=== PATIENT | male | born 1930 | race Caucasian/White ===

== ENCOUNTER 2016-08-05 19:55 | Inpatient (IN) | payer MEDICARE, OTHER ==
--- NOTE | ~2016-08-05 | CN ---
Consultation Report [facility] [address] [place]. [address] NAME: INNA MATOS : 32 STATUS : ADM IN PAT#: [id number] AGE: 86 ADM/REG DATE : 08/05/16 MR#: [id number] REPORT SERV DATE: 08/13/16 DICTATED BY: SHELDON HOYOS DATE: 08/13/16 REPORT STATUS : Draft TRANSCRIBED BY: MODL DATE: 08/13/16 INPATIENT CONSULT NOTE DATE OF CONSULTATION: 08/13/2016 REASON FOR CONSULTATION: Acute drop in hemoglobin concerning for GI bleed. HISTORY OF PRESENT ILLNESS: Mr. 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 The patient underwent left heart catheterization with placement of a left anterior descending drug-eluting stent and was started on Brilinta as well as aspirin. The patient has had intermittent problems in the past with ascites requiring paracentesis every several weeks. During this hospitalization on the day prior to this consultation, the patient underwent a paracentesis with removal of 3000 mL of ascites fluid. On the morning of this consultation, the patient was noted to have had an acute drop in his hemoglobin down from 9 to 7.5 with a subsequent recheck several hours later down to 6.7. The patient had a stool sample sent earlier that by report was dark. The patient has had no suggestion of any melena. The patient has had nauseousness over the last several days, but has had no emesis of any coffee-ground material or bright red blood. The patient has also had no bright red blood per rectum. GI was consulted for concern of possible GI bleed. It should also be noted that the patient's BUN has been noted to be on the rise over the last several days after his left heart catheterization up to a high of 99 with a baseline closer to 50 or 60. The patient has also had an increase in his creatinine over this time period as well. REVIEW OF SYSTEMS: All systems reviewed and were negative aside from what was mentioned in the history of present illness. The patient denied any fevers or chills. No abdominal pain. PAST MEDICAL HISTORY: Includes: 1. 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 3. History of ascites. 4. History of hepatic encephalopathy. 5. Chronic kidney disease, stage 3 to 4. 6. Hypertension. 7. Hypothyroidism. 8. Restless legs syndrome. FAMILY HISTORY: The patient has no family history of any GI-related malignancies or liver disease. SOCIAL HISTORY: The patient does not drink. He does not smoke any longer having quit Consultation Report [address] [place]. [address] NAME: INNA MATOS : 32 STATUS : ADM IN PAT#: [id number] AGE: 86 ADM/REG DATE : 08/05/16 MR#: [id number] REPORT SERV DATE: 08/13/16 DICTATED BY: SHELDON HOYOS DATE: 08/13/16 REPORT STATUS : Draft TRANSCRIBED BY: RADHA DATE: 08/13/16 several decades ago and does not use illicit substances. ALLERGIES: THE PATIENT HAS AN ALLERGY TO DILAUDID. CURRENT INPATIENT MEDICATIONS: Include: 1. Protonix 40 mg IV daily. 2. Lipitor. 3. Aspirin. 4. Brilinta. 5. Synthroid. 6. Xifaxan. 7. Remeron. 8. Protonix drip that was just started. PHYSICAL EXAMINATION: VITAL SIGNS: Most recent vital signs include a temperature of 96.7, pulse rate is 92, blood pressure is 104/63, and saturating 95% on room air. GENERAL INSPECTION: Reveals an elderly male, lying in bed, in no apparent distress. HEENT: Head: Normocephalic, atraumatic. Normal inspection of the oral mucosa. Sclerae nonicteric. Pupils are equal and round. NECK: Supple without lymphadenopathy. HEART: Heart rate is regular with normal S1, S2. LUNGS: Sounds clear to auscultation bilaterally. ABDOMEN: Soft, with very mild distention, but no masses were felt. No significant fluid buildup was appreciated. EXTREMITIES: The patient had no cyanosis, clubbing, or edema. SKIN: He did have scattered ecchymoses. No jaundice or rash. NEUROLOGIC: He has no gross motor deficits. He is alert and oriented. Mood and affect are appropriate. Judgment appeared to be intact. LABORATORY DATA: Most recent laboratory results include a hemoglobin of 6.7, down from 7.6 earlier in the day and 9.1 the day before. The patient had an INR of 1.6 and a PTT of 35 yesterday. No pertinent imaging to review. The patient was noted to have rising BUN and creatinine with most recent BUN of 99 and creatinine of 2.12. ASSESSMENT AND PLAN: Mr. Matos is a very pleasant 86-year-old male with a history of cirrhosis, who just sustained an ST-elevation myocardial infarction and underwent catheterization with drug-eluting stent placement and is now on Brilinta and aspirin, now having acute drop in his hemoglobin level. The patient does have an elevated BUN, but he has also had a concomitant rise in his creatinine. He has continued to have nauseousness, but no emesis of any coffee-grounds emesis or hematemesis. The patient has not been having frequent stools that be suggestive of melena or other form of GI bleeding. While GI Consultation Report [address] [place]. [address] NAME: INNA MATOS : 32 STATUS : ADM IN [facility]#: [id number] AGE: 86 ADM/REG DATE : 08/05/16 MR#: [id number] REPORT SERV DATE: 08/13/16 DICTATED BY: SHELDON HOYOS DATE: 08/13/16 REPORT STATUS : Draft TRANSCRIBED BY: MODGus DATE: 08/13/16 bleeding if possible would be more concerned at this point in time about the paracentesis that he underwent yesterday. After which he has had this acute drop in his hemoglobin level. I would recommend CT of the abdomen and pelvis without contrast given the patient's kidney dysfunction to assess for any suggestion of blood mixing with his ascites fluid. In addition to this, we would keep the patient on a Protonix drip for now and continue to monitor hemoglobin three times daily and transfuse as felt appropriate. We will consider an EGD if CT scan shows no suggestion of intraabdominal bleeding. Thank you very much for this interesting consult. Please call with any questions or concerns you may have. SERGIO/RADHA Sheldon Hoyos MD / [id number] CC: Sabas Wilson MD
--- NOTE | ~2016-08-05 | CN ---
Consultation Report [facility] [address] [place]. [address] NAME: INNA DELGADO : 32 STATUS : ADM IN PAT#: [id number] AGE: 86 ADM/REG DATE : 08/05/16 MR#: [id number] REPORT SERV DATE: 08/13/16 DICTATED BY: ROBERTO CARLOS SONG DATE: 08/13/16 REPORT STATUS : Draft TRANSCRIBED BY: MODL DATE: 08/13/16 NEPHROLOGY CONSULTATION DATE OF CONSULTATION: 08/13/2016 REASON FOR CONSULTATION: Acute upon chronic renal failure. HISTORY OF PRESENT ILLNESS: This is an 86-year-old, gentleman, who apparently carries a history of chronic kidney disease stage 3B but is not followed by anyone at our office. He was seen briefly in consultation by my partner, Dr. Elda Geller, at [facility] in 07/2015. He had brief prerenal-type renal insufficiency at that time, and by the time, he was discharged, his creatinine was 1.2 mg/dL. From more recent lab work, it appears recent baseline creatinine has been more like 1.65 to 1.85 mg/dL as reflected by the [facility] lab work from 05/2016. He presented this time round with acute substernal chest pain on 08/05/2016 and was rapidly taken to the medical laboratory technician for coronary arteriogram. He was found to have a stentable lesion with 100% occlusion of proximal LAD. He underwent stenting with a drug-eluting stent. He has been on anti-platelet Brilinta since that time. He did not, from all I can tell, develop dye nephropathy. Creatinine remained fairly stable until 08/08/2016, when it had bumped up to 1.94 mg/dL. However, after supportive care and hydration, the creatinine dropped back down to 1.60 on 08/10/2016. As of yesterday, it was up to 1.79 mg/dL. He does have history of known cirrhosis and had developed ascites in the midst of all of this. He underwent paracentesis of 3 L yesterday. Review of vital signs from the electronic record reveals that systolics were in the 80s to 90s throughout yesterday afternoon and evening. This morning, his creatinine is up to 2.12 mg/dL. We are consulted to assist. PAST MEDICAL HISTORY: 1. Coronary artery disease with acute anterior lateral LA and status post stenting occluded LAD on 08/06/2016. 2. History of thrombocytopenia back in 05/2016, which was secondary to ITP and responded to corticosteroids. Platelets have been normal during this admission. 3. Chronic kidney disease with baseline creatinine 1.6 to 1.7 mg/dL, which give him stage IIIB chronic kidney disease. 4. Advanced cryptogenic cirrhosis with history of ascites followed by Dr. Freddy Lozano. 5. Chronic hypertension. 6. Hypothyroidism. 7. Restless legs syndrome. PAST SURGICAL HISTORY: 1. Open cholecystectomy in the distant past. 2. Coronary arteriography and stenting left anterior descending artery during this admission. 3. Remote hernia repair. 4. Remote repair of rectal prolapse. Consultation Report [address] [address] NAME: INNA DELGADO : 32 STATUS : ADM IN [facility]#: [id number] AGE: 86 ADM/REG DATE : 08/05/16 MR#: [id number] REPORT SERV DATE: 08/13/16 DICTATED BY: ROBERTO CARLOS SONG DATE: 08/13/16 REPORT STATUS : Draft TRANSCRIBED BY: RADHA DATE: 08/13/16 5. Bilateral cataract extraction. FAMILY HISTORY: He had a brother who suffered myocardial infarction at age 70. There is no family history of sudden cardiac . The patient did not recall any history of chronic kidney disease in his family. SOCIAL HISTORY: Remote smoking but he quit when he was approximately 62 years old. He does chew tobacco routinely. He does not abuse alcohol beverages. He is and has a very supportive . ALLERGIES: HE IS LISTED BEING ALLERGIC TO DILAUDID, WHICH CAUSED AN ANAPHYLACTOID REACTION. NO OTHER SIGNIFICANT ALLERGIES. HOME MEDICATIONS: Furosemide, gabapentin, hydrocodone/APAP, levothyroxine, mirtazapine, rifaximin, Aldactone. Now also taking aspirin and Brilinta. REVIEW OF SYSTEMS: GENERAL: No chills or fevers. GI: Appetite has diminished and intake of food and drink has been diminished since one to two days after admission to the hospital. The patient cannot ascertain why that is happening to him. He indicates some constipation lately. He denies bloody stools or melena. No nausea or vomiting. : No dysuria, gross hematuria, or urinary hesitancy. RESPIRATORY: No cough. CARDIOVASCULAR: Chest pain is totally resolved. He did not have peripheral edema. Other GI/ABDOMEN: He had protuberant ascites as of yesterday and underwent successful paracentesis of 3 L. SKIN: No acute rashes. All other review of systems was negative or noncontributory. PHYSICAL EXAMINATION: VITAL SIGNS: Blood pressure 95/57, temperature 99.3, respiratory rate 18, heart rate 82 beats per minute. Weight 66 kg. Urinary output 630 mL over the previous 12 hours. GENERAL: This is a chronically ill-appearing, elderly gentleman, who is in no distress at this time. HEENT: Normocephalic, atraumatic. External ears and nose normal. Sinuses nontender. Oropharynx, mucous membranes are moist and pink, free of any ulcerations or exudates. Eye exam was conjunctivae are free of any hemorrhages or exudates. Sclerae anicteric. Extraocular motor function is intact. Pupils equal, round, and reactive to light. NECK: Supple. Easily movable without meningismus. No palpable masses or nodules. LYMPHATIC: Anterior-posterior neck, supraclavicular, and abdominal regions were free of Consultation Report [address] [place]. [address] NAME: INNA DELGADO : 32 STATUS : ADM IN [facility]#: [id number] AGE: 86 ADM/REG DATE : 08/05/16 MR#: [id number] REPORT SERV DATE: 08/13/16 DICTATED BY: ROBERTO CARLOS SONG DATE: 08/13/16 REPORT STATUS : Draft TRANSCRIBED BY: RADHA DATE: 08/13/16 lymphadenopathy. RESPIRATORY: Efforts nonlabored. Lung bell clear to auscultation throughout. CARDIOVASCULAR: Regular rate and rhythm is appreciated without any gallop, rub, or murmur. No peripheral edema. No peripheral cyanosis. ABDOMEN: Minimally protuberant. Percussion elicits a normal tympani. No significant fluid wave at this point. Palpation elicits no guarding or tenderness. No evidence of hepatomegaly or splenomegaly at this time. SKIN: No rashes, breakdown, or discoloration. Skin turgor is diminished over the chest wall and forearms. STUDIES: Urinalysis from 08/07/2016, specific gravity 1.012, pH 5, negative protein, negative glucose, negative ketones, negative hemoglobin, negative leukocyte esterase. Microscopy was bland except for 28 hyaline casts. CBC; white cell count 7.6, hemoglobin 6.7 g/dL, hematocrit 19.4%, platelets 163. Chemistries: Albumin 2.2 g/dL, sodium 140, potassium 4.8, chloride 103, CO2 22, BUN 99, creatinine 2.12, glucose 110. Of note, the BUN has risen disproportionately to rise in serum creatinine. His BUN on admission was 64. IMPRESSION: 1. Mild acute kidney injury superimposed upon moderate chronic kidney disease. He may have acute tubular necrosis versus a purely prerenal state given recent hypotension after paracentesis. 2. Chronic kidney disease stage 3B with baseline creatinine 1.6 mg/dL to 1.7 mg/dL. 3. Recent anterolateral myocardial infarction, for which he was taken to the medical laboratory technician and his LAD was stented emergently. He is now taking Brilinta as well as aspirin. 4. Cryptogenic cirrhosis. Moderately advanced, followed by Dr. Freddy Lozano. Positive ascites and he is status post 3 L paracentesis yesterday. 5. Tobacco abuse. 6. Hypoalbuminemia. 7. Moderate to high severity anemia, etiology unclear. History does not suggest at this time that he is having a gastrointestinal blood loss. 8. Chronic hypotension, which may be related to chronic liver disease. 9. Very mild metabolic acidosis in the setting of acute renal failure. PLAN/RECOMMENDATION: 1. We need a new urinalysis as well as fractional secretion of urea studies with random urine creatinine, random urine urea. 2. I was going to suggest salt poor albumin but it appears he is getting a couple of units of packed red blood cells, and I think that would be preferable to SPA infusions for today. He is also getting some normal saline IV and I have no objection to that at this point. 3. Hold Aldactone and Lasix for now. 4. Daily chemistries to assess renal function. 5. Strict intake and output measurements and daily weights. Thank you for consulting me in the care of this complicated patient. Our service will follow carefully. Consultation Report [facility] [id number] [place]. [address] NAME: DELGADOMALIKINNA T : 32 STATUS : ADM IN PAT#: [id number] AGE: 86 ADM/REG DATE : 08/05/16 MR#: [id number] REPORT SERV DATE: 08/13/16 DICTATED BY: ROBERTO CARLOS SONG DATE: 08/13/16 REPORT STATUS : Draft TRANSCRIBED BY: RADHA DATE: 08/13/16 ANTOINE/RADHA Roberto Carlos Song M.D. / [id number] CC: Roberto Carlos Wilson MD
--- NOTE | ~2016-08-05 | DS ---
Discharge Summary [facility] [address] [place]. [address] NAME: INNA MATOS : 32 STATUS : DIS IN PAT#: [id number] AGE: 86 ADM/REG DATE : 08/05/16 MR#: [id number] REPORT SERV DATE: 10/25/16 DICTATED BY: ROBERTO CARLOS WILSON DATE: 10/24/16 REPORT STATUS : Draft TRANSCRIBED BY: MODGus DATE: 10/24/16 ADMISSION DATE: 08/05/2016 DISCHARGE DATE: 09/12/2016 DISCHARGE DIAGNOSES: 1. Acute anterolateral CG-vqtpswl-evvhghvrr myocardial infarction. 2. Advanced cirrhosis with chronic ascites. 3. Paroxysmal atrial fibrillation. 4. Chronic systolic heart failure. 5. Stage 3 chronic kidney disease. 6. Acute GI bleed. 7. Ileus. 8. Hypothyroidism. 9. Hypertension. 10.Prostatic hypertrophy. DISCHARGE MEDICATIONS: 1. Aspirin 81 mg p.o. daily. 2. Finasteride 5 mg p.o. daily. 3. Gabapentin 100 mg p.o. twice daily. 4. Levothyroxine 50 mcg p.o. daily. 5. Midodrine 10 mg p.o. three times daily. 6. Remeron 30 mg p.o. q.h.s. 7. Xifaxan 550 mg p.o. twice daily. 8. Sodium bicarbonate 1300 mg p.o. twice daily. 9. Tamsulosin 0.4 mg p.o. q.h.s. HOSPITAL COURSE: Mr. Matos is a pleasant, but chronically ill 86-year-old man, who was in his usual state of health until 08/05/2016. The patient presented with an acute anterolateral QG-kzznpvu-izyokyqjs myocardial infarction. The patient was taken for emergency primary percutaneous coronary intervention. He was found to have total occlusion of the proximal portion of the left anterior descending. He was treated with aspiration thrombectomy and placement of a 3.0 x 16 mm Synergy drug-eluting stent. The patient had some distal LAD disease, but no other significant occlusive coronary heart disease. He was admitted to the intensive care unit. The patient has known cirrhosis and did develop some mild hypotension. He also developed some renal insufficiency. The Nephrology Service was consulted. The patient's Aldactone and Lasix were withheld temporarily due to renal dysfunction. This resulted in the development of ascites. The patient also had multiple other issues which occurred during his hospitalization, including an ileus and paroxysmal atrial fibrillation. The patient also had significant deconditioning. Multiple consultants were employed in the patient's care. The patient required multiple paracenteses throughout his hospital stay. The patient also suffered GI bleeding. This required discontinuation of anticoagulation as well as the patient's antiplatelet therapy with the exception of aspirin 81 mg daily. The patient eventually recovered and was finally discharged to home after more than 30 days in the hospital on 09/12/2016. The patient will have followup with Dr. Smith, his regular nurse practitioner adult. He also has followup with Dr. Freddy Lozano, his election judge. Discharge Summary [address] [address] NAME: INNA MATOS : 32 STATUS : DIS IN PAT#: [id number] AGE: 86 ADM/REG DATE : 08/05/16 MR#: [id number] REPORT SERV DATE: 10/25/16 DICTATED BY: ROBERTO CARLOS WILSON DATE: 10/24/16 REPORT STATUS : Draft TRANSCRIBED BY: MODGus DATE: 10/24/16 The patient is not being treated with a statin drug because of his cirrhosis. He is not being treated with a beta-jil or JEFFRY inhibitor due to symptomatic hypotension, which occurred during the patient's hospitalization. The patient was in fact placed on midodrine by Dr. Lozano due to concern over decreased systemic vascular resistance from the patient's cirrhosis. [facility] Roberto Carlos Wilson MD / [id number] CC: MD John Chilel M.D.
--- NOTE | ~2016-08-05 | CN ---
Consultation Report [facility] [address] [place]. [address] NAME: INNA MATOS : 32 STATUS : ADM IN PAT#: [id number] AGE: 86 ADM/REG DATE : 08/05/16 MR#: [id number] REPORT SERV DATE: 08/07/16 DICTATED BY: KARIN LOZANO DATE: 08/07/16 REPORT STATUS : Draft TRANSCRIBED BY: MODL DATE: 08/07/16 CONSULT NOTE. DATE OF CONSULTATION: 08/07/2016 REASON FOR CONSULTATION: Cirrhosis and complications management. HISTORY: Mr. Matos is an 86-year-old male with cryptogenic cirrhosis of liver, who was the patient of Dr. Boyd until recently. I saw him in my clinic about two to three weeks ago. Has complication in the form of ascites, getting paracentesis as needed. He was getting once a month. Lately, it has been increased to once every one to two weeks. Recent diuretics were increased to Lasix 120 mg and spironolactone 75 mg. He has chronic kidney disease, stage 3. It has been stable with creatinine around 1.6 and GFR in late 20s or early 30s. He now is admitted with acute ST-elevation myocardial infarction. Had left anterior descending drug-eluting stent placed yesterday by Dr. Wilson. Now, on Brilinta along with aspirin. Post DE, developed shock, appears cardiogenic in nature, on dopamine at this time at 5 mcg. Blood pressure is running in 100s with diastolic in 60 and heart rate is in 80s. Obviously, not on any antihypertensive medications. The patient has continued getting diuretics along with his Xifaxan. Again, I saw him only one time, in process of getting all the records from Dr. Boyd. I am not aware of any EGD report, but no history of GI bleeding. Has mild encephalopathy, which is relatively controlled on Xifaxan. We had a lengthy discussion in the clinic when I saw him with family members. They suggested that he is not a candidate of liver transplant at 86 age. Also, TIPS is not ideal method of controlling ascites with increased risk of encephalopathy and will make his quality of life poor. The best option, we decided to is paracentesis as needed, but fortunately has not needed paracentesis for almost little bit over two weeks now. There is a concern about ascites causing hypertension, and primary team is requesting paracentesis if needed and that is the main reason I have been consulted. At this point, the patient is asymptomatic. Denies chest pain. Belly is soft. The patient does not need paracentesis. He says diuretics is working really well. He also is getting the diagnosis of ITP. His platelet dropped down to 9, received a steroid. About two months ago, platelets were 119 in my office and now they are 112 yesterday and this morning. PAST MEDICAL HISTORY: Consultation Report [address] [place]. [address] NAME: INNA MATOS : 32 STATUS : ADM IN PAT#: [id number] AGE: 86 ADM/REG DATE : 08/05/16 MR#: [id number] REPORT SERV DATE: 08/07/16 DICTATED BY: KARIN LOZANO DATE: 08/07/16 REPORT STATUS : Draft TRANSCRIBED BY: MODL DATE: 08/07/16 1. ITP. 2. Cirrhosis of liver. 3. Ascites. 4. Hepatic encephalopathy. 5. Chronic kidney disease, stage 3 to 4. 6. Hypertension. 7. Hypothyroidism. 8. Restless legs syndrome. SURGICAL HISTORY: Cholecystectomy, hernia repair, rectal prolapse repair, and bilateral cataract surgery. Now LAD stent, drug-eluting. FAMILY HISTORY: Brother suffered microinfarction at age of 70. Negative for any liver- related disease. SOCIAL HISTORY: Distant tobacco smoking, quit about 20 plus years ago. Does not drink alcohol. Good family support. ALLERGIES: DILAUDID. MEDICINE AT HOME: 1. Lasix 80 mg in the morning and 40 in the evening. 2. Aldactone 50 in the morning and 25 in the evening. 3. Xifaxan 550 twice a day. 4. Remeron 30 at night. 5. Gabapentin 100-200 mg at night. 6. Hydrocodone as needed. 7. Levothyroxine 50 mcg daily. REVIEW OF SYSTEMS: As per HPI. Other systems reviewed, significant positive has been mentioned in the history. PHYSICAL EXAMINATION: GENERAL: Well developed, average nourished, pleasant, not in distress. VITAL SIGNS: Blood pressure 107/62, pulse 88, respirations 16, pulse ox 98%, temperature 98.6. HEENT: Eyes have mild pallor. No icterus. Pupils equally round, reactive to light. NECK: Supple. No JVD. LUNGS: Bilateral decreased air entry. Bibasilar rales. HEART: S1, S2 present. No gallop. No murmur appreciated. ABDOMEN: Bit distended. Pxsh-ul-elwfssul ascites. Nontender. Liver and spleen not palpable. No hernia. EXTREMITIES: No edema. No varicose veins. Normal peripheral pulses. NEURO: No focal deficits. Cranial nerves intact. Speech normal. PSYCH: Awake, oriented, and a bit slow, but responding to all the questions appropriately. Consultation Report [facility] [address] [place]. [address] NAME: INNA MATOS : 32 STATUS : ADM IN [facility]#: [id number] AGE: 86 ADM/REG DATE : 08/05/16 MR#: [id number] REPORT SERV DATE: 08/07/16 DICTATED BY: KARIN LOZANO DATE: 08/07/16 REPORT STATUS : Draft TRANSCRIBED BY: MODGus DATE: 08/07/16 LABORATORY WORK: Shows WBC 5.7, hemoglobin 10.9, platelet 112. Sodium 137, potassium 4.3, chloride 104, bicarb 21, BUN 58, creatinine 1.62. INR 1.3. AST 43, albumin 2.8. CPK 1100, troponin 83, bilirubin 0.4, and MELD-sodium score is 14. IMPRESSION: 1. ST-elevation myocardial infarction, status post stent in LAD, drug-eluting, on anti- platelet in form of Brilinta and aspirin. The patient is symptomatic now. 2. Hypertension. Appears more cardiogenic, status post myocardial infarction on dopamine. Blood pressure is in 90s to 100 with a pulse in 80s and 90s. 3. Cryptogenic cirrhosis of liver, burned-out liver. Has heterozygous alpha-1 antitrypsin deficiency, MZ with level around 70s. All other chronic liver diseases are negative. Has complication in form of ascites, hepatic encephalopathy, unknown status off varices, do not have recent EGD report which was done by Dr. Boyd. 4. Ascites, on p.r.n. paracentesis with albumin, average every two to three weeks. Not an ideal TIPS candidate. Not a candidate for aggressive diuretics with high risk of hepatorenal syndrome. The best option is paracentesis, but not needed at this point. 5. Chronic kidney disease stage 3 to stage 4, on diuretics. Again high risk of hepatorenal syndrome. Would like to avoid any nephrotoxic medications with very close monitoring of blood work as an outpatient. 6. Debilitation and malnutrition. 7. Idiopathic thrombocytopenic purpura. Platelets are stable at this point. Again, if the platelets continue to drop, then may need prednisone pulse therapy. SUGGESTION: 1. Paracentesis with albumin as needed. At this point, I do not think it is clinically warranted. The patient has minimal fluid. 2. For the future paracentesis, we will have to talk to the radiologist. Unfortunately, now he is on Brilinta which cannot be stopped with the stent which is drug-eluting, and we will have to do paracentesis while on antiplatelet with acceptable risk of bleeding and I have discussed with the daughter and she understands that. 3. We will continue Lasix total 180 mg daily and spironolactone total 75 mg daily. It seems he is tolerating with stable renal functions to minimize the frequency of paracentesis. 4. We will add ProAmatine 10 mg three times a day to support blood pressure and try to get him off the dopamine and likely will need as an outpatient. 5. Obviously not a candidate for beta jil and JEFFRY inhibitor at this point. 6. Continue rifaximin for PSE and gabapentin for restless legs syndrome. Again, had a lengthy discussion with the patient's family about current situation. Potential risk of bleeding and paracentesis on anti-platelet agent. He and daughter understand and agree with the management. Call me if any question or concern. Consultation Report [place] [address] [place] [address] NAME: INNA MATOS : 32 STATUS : ADM IN PAT#: [id number] AGE: 86 ADM/REG DATE : 08/05/16 MR#: [id number] REPORT SERV DATE: 08/07/16 DICTATED BY: KARIN LOZANO DATE: 08/07/16 REPORT STATUS : Draft TRANSCRIBED BY: RADHA DATE: 08/07/16 JEANIE/RADHA Karin Lozano M.D. / [id number] CC: MD John Chilel M.D.
--- NOTE | ~2016-08-05 | EGD ---
EGD REPORT [facility] [address] [place] [address] NAME: INNA MATOS : 32 STATUS : ADM IN PAT#: [id number] AGE: 86 ADM/REG DATE : 08/05/16 MR#: [id number] REPORT SERV DATE: 08/15/16 DICTATED BY: SHELDON HOYOS DATE: 08/15/16 REPORT STATUS : Draft TRANSCRIBED BY: [facility] DATE: 08/15/16 Endoscopy Center Patient Name: Inna Matos Date of : 1930 Attending MD: SHELDON HOYOS MD Procedure Date No Time: 08/14/2016 Procedure: Upper GI endoscopy Indications: Suspected upper gastrointestinal bleeding Medicines: Monitored Anesthesia Care Complications: No immediate complications. Estimated blood loss: None. Procedure: Pre-Anesthesia Assessment: - ASA Grade Assessment: IV - A patient with severe systemic disease that is a constant threat to life. After obtaining informed consent, the endoscope was passed under direct vision. Throughout the procedure, the patient's blood pressure, pulse, and oxygen saturations were monitored continuously. The GIF [id number] was introduced through the mouth, and advanced to the second part of duodenum. The upper GI endoscopy was accomplished without difficulty. The patient tolerated the procedure well. Findings: No gross lesions were noted in the entire esophagus. No gross lesions were noted in the entire examined stomach. A large diverticulum was found in the second part of the duodenum. The exam was otherwise without abnormality. Impression: - No suggestion of recent bleeding in the entire upper GI tract - Duodenal diverticulum. - The examination was otherwise normal. Recommendation: - Clear liquid diet. - Check hemoglobin q 8 hours until stable. Procedure Code(s): --- Professional --- 85385, Esophagogastroduodenoscopy, flexible, transoral; diagnostic, including collection of specimen(s) by brushing or washing, when performed (separate procedure) Diagnosis Code(s): --- Professional --- K57.10, Diverticulosis of small intestine without perforation or abscess without bleeding EGD REPORT [address] [address] NAME: INNA MATOS : 32 STATUS : ADM IN [facility]#: [id number] AGE: 86 ADM/REG DATE : 08/05/16 MR#: [id number] REPORT SERV DATE: 08/15/16 DICTATED BY: SEHLDON HOYOS DATE: 08/15/16 REPORT STATUS : Draft TRANSCRIBED BY: [employer] [facility] [facility] DATE: 08/15/16 CPT copyright 2013 [employer]. All rights reserved. The codes documented in this report are preliminary and upon joist setter review may be revised to meet current compliance requirements. Sheldon Hoyos MD SHELDON HOYOS MD 08/14/2016 10:29 AM This report has been signed electronically. Number of Addenda: 0 Note Initiated On: 08/14/2016 10:07 AM Scope Withdrawal Time 0 hours 0 minutes 0 seconds
--- NOTE | ~2016-08-05 | HP ---
History And Physical [place] [address] [place]. [address] NAME: INNA MATOS : 32 STATUS : ADM IN [facility]#: [id number] AGE: 86 ADM/REG DATE : 08/05/16 MR#: [id number] REPORT SERV DATE: 08/06/16 DICTATED BY: ROBERTO CARLOS WILSON DATE: 08/05/16 REPORT STATUS : Draft TRANSCRIBED BY: MODL DATE: 08/05/16 DATE OF ADMISSION: 08/05/2016 CARDIOLOGY ADMISSION HISTORY AND PHYSICAL IDENTIFYING DATA: The patient is an 86-year-old man, with history of advanced liver disease, but no significant history of cardiovascular disease. CHIEF COMPLAINT: Substernal chest pain of abrupt onset at approximately 2 o'clock p.m. this afternoon. HISTORY OF PRESENT ILLNESS: Mr. Matos is a pleasant 86-year-old man with a history of hepatic insufficiency/cirrhosis apparently due to hepatitis infection many years ago. The patient has a history of ascites and receives chronic therapeutic paracentesis as needed. The patient was in his usual state of health until this afternoon at approximately 2 o'clock p.m. 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 The patient did not immediately seek medical treatment, but eventually presented to [facility] Emergency Room at approximately 8 o'clock p.m. The patient's initial 12-lead EKG was consistent with an anterior myocardial infarction. The patient was transferred to [facility] emergently for primary percutaneous coronary intervention. The patient reported his chest pain was 8/10 at the time of presentation. It had been unremitting. PAST MEDICAL HISTORY: 1. The patient is followed by Dr. Zain Smith, but has no known history of coronary heart disease. He had a previous stress test and echocardiogram which were unremarkable. 2. History of thrombocytopenia secondary to suspected ITP. 3. Chronic kidney disease with baseline creatinine 1.6 to 1.7. 4. Advanced cirrhosis with history of ascites. 5. Hypertension. 6. Hypothyroidism. 7. Restless leg syndrome. PAST SURGICAL HISTORY: 1. The patient has had an open cholecystectomy in the distant past. 2. Hernia repair. 3. Repair of rectal prolapse. 4. Bilateral cataract extraction. FAMILY HISTORY: The patient reports that his brother suffered myocardial infarction and/or stent placement at approximately age 70. Family history is negative for sudden cardiac . SOCIAL HISTORY: The patient has a distant history of cigarette smoking, but quit when he was approximately 62 years old. He denies any significant history of alcohol use. The patient History And Physical [address] [address] NAME: INNA MATOS : 32 STATUS : ADM IN PAT#: [id number] AGE: 86 ADM/REG DATE : 08/05/16 MR#: [id number] REPORT SERV DATE: 08/06/16 DICTATED BY: ROBERTO CARLOS WILSON DATE: 08/05/16 REPORT STATUS : Draft TRANSCRIBED BY: MODL DATE: 08/05/16 is and lives at home with his . ALLERGIES: THE PATIENT REPORTS AN ADVERSE REACTION TO DILAUDID, WHICH CAUSED AN ANAPHYLACTOID REACTION, NOT OTHERWISE SPECIFIED. HOME MEDICATIONS: According to the patient's daughter, the patient's home medication regimen includes the following. 1. Lasix 80 mg p.o. q.a.m. and 40 mg p.o. q.p.m. 2. Aldactone 50 mg p.o. q.a.m. and 25 mg p.o. q.p.m. 3. Xifaxan 550 mg p.o. twice daily. 4. Remeron 30 mg p.o. q.p.m. p.r.n. sleep. 5. Gabapentin 100 mg to 200 mg p.o. q.p.m. as needed for restless leg discomfort. 6. Hydrocodone as needed for pain. 7. Levothyroxine 50 mcg daily. REVIEW OF SYSTEMS: A complete 12-system review was performed. This is noncontributory except for the pertinent positives and negatives noted in the history of present illness above. Of note, the patient does have slight worsening of chronic abdominal distention: He has not received paracentesis recently. Previously,the patient was receiving paracenteses approximately once weekly. PHYSICAL EXAMINATION: VITAL SIGNS: The patient is afebrile. Blood pressure on presentation is approximately 90/50 mmHg, heart rate is 85 beats per minute and regular, respirations 20, oxygen saturation is 96% on 2 L nasal cannula. CONSTITUTIONAL: The patient is a chronically ill-appearing, elderly white man who is uncomfortable, but in no acute respiratory distress at the time of presentation. HEAD, EARS, NOSE, THROAT: Normal cranium, atraumatic with moist mucous membranes and grossly normal hard and soft palate. Eyes: There is very mild scleral icterus with arcus senilis and changes of bilateral cataract extraction surgery noted. NECK: The neck appears grossly normal with midline trachea. No evidence of thyromegaly or lymphadenopathy. CARDIOVASCULAR: There is a regular rhythm with normal S1 and a physiologically split second heart sound. No significant murmurs, rubs, or gallops are noted. The jugular venous pressure is grossly normal. PULMONARY: Limited exam due to the patient's positioning, but the lungs are grossly clear to auscultation bilaterally. ABDOMEN: The abdomen is protuberant with moderate distention. The abdomen is mildly tense, though there is no rebound or guarding or significant tenderness to palpation. Bowel sounds are hypoactive. EXTREMITIES: There is trace to 1+ pedal edema. SKIN: Otherwise normal texture and turgor with slight jaundice. No open lesions are noted. 12-LEAD EKG: The patient's admission 12-lead EKG shows normal sinus rhythm with 2 [address]-segment elevation in the anterior leads with Q-waves consistent with an evolving anterolateral ST-segment elevation myocardial infarction. History And Physical [address] [address] NAME: INNA MATOS : 32 STATUS : ADM IN [facility]#: [id number] AGE: 86 ADM/REG DATE : 08/05/16 MR#: [id number] REPORT SERV DATE: 08/06/16 DICTATED BY: ROBERTO CARLOS WILSON DATE: 08/05/16 REPORT STATUS : Draft TRANSCRIBED BY: MODL DATE: 08/05/16 LABORATORY DATA: Preliminary labs from [facility] are significant for a platelet count of 141,000, creatinine of approximately 1.7, and otherwise grossly normal electrolytes with a mild anemia. Full labs are pending at this time. Coronary angiography: Please see official report for full details. 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 The patient was treated with aspiration thrombectomy and placement of a 3.0 x 16 mm Synergy drug-eluting stent with 0% residual and RIYA-3 flow. The patient had mild plaquing of the right coronary artery and distal left anterior descending with no other significant occlusive coronary heart disease. Left ventricular end-diastolic pressure was 12 mmHg. Left ventriculography was not performed, due to chronic kidney disease. ASSESSMENT AND PLAN: 1. 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 He will continue aspirin 81 mg daily indefinitely. The patient was relatively hypotensive at the time of presentation, but he will be started on carvedilol if his blood pressure remained stable, and he does not have any evidence of acute systolic heart failure. 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 2. Cirrhosis: We will consider Gastroenterology consult if necessary. The patient does appear to have a significant amount of ascites at this time, though this it is not clear that he will require paracentesis at this point. The patient's platelet count will be monitored closely, and the patient will be monitored for any evidence of bleeding complications. 3. Hypothyroidism: The patient will continue his home dose of levothyroxine 50 mcg daily. 4. Hypertension: The patient has no evidence of hypertension at this time and is in fact hypotensive. Again, we will add a beta jil if tolerated. J[facility]/MODL Roberto Carlos Wilson MD / [id number] CC: Roberto Carlos Wilson MD
--- NOTE | ~2016-08-05 | CN ---
Consultation Report [facility] [address] [place]. [address] NAME: INNA DELGADO : 34 STATUS : ADM IN PAT#: [id number] AGE: 86 ADM/REG DATE : 08/05/16 MR#: [id number] REPORT SERV DATE: 08/22/16 DICTATED BY: CRIS LYNN DATE: 08/22/16 REPORT STATUS : Draft TRANSCRIBED BY: MODL DATE: 08/22/16 MEDICAL CONSULTATION DATE OF CONSULTATION: 08/22/2016 REASON FOR CONSULTATION: Coordination of care. REASON FOR ADMISSION: Acute anterolateral myocardial infarction. HISTORY OF PRESENT ILLNESS: This is an 86-year-old, white male, in the hospital here for an acute anterolateral PA. He was seen by Dr. Wilson. He does have an ejection fraction about 35%. His troponin was extremely elevated over 83. He was started on anti-platelet medication and other cardiovascular medication on 08/05 at 2230 hours. From chart review, it indicates the patient has been seen by Dr. 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 He has had multiple side paracenteses in the past. His status for varices is unknown. He was found to have iron deficiency anemia by Hematology/Oncology. 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 Eze Hazel for that. His primary care being given initially by Dr. Boyd up until May 2016 and then care for his liver transferred to Dr. Freddy Lozano for his care. Dr. Freddy Lozano saw the patient during the hospitalization on 08/07/2016. His note was reviewed. He did have some hypotension, was on dopamine at that time. He did have modest renal insufficiency with a creatinine 1.62 and has been seen by Nephrology during this hospitalization. Family understands that his liver was stable as judged by Dr. Lozano, however Dr. Lozano's note indicates he has burned out liver disease secondary to the heterozygous alpha 1 antitrypsin deficiency. He suggested p.r.n. LBP and albumin, but he is not a candidate for TIPS or not a candidate to increase diuretics because of his chronic kidney disease stage 3 to 4. He does have malnutrition. He said that he is a high risk for hepatorenal syndrome. The patient was resuscitated from that level and followed by Dr. Lozano and Katie requiring paracentesis on 08/12/2016. The patient's discharge planning has been a problem ever since then. Nephrology saw the patient because of mild acute on chronic kidney disease and adjusted the diuretics, to which the family had objection. EGD was done showing no stigmata of bleeding and likely GI bleeding to account for his drop in hemoglobin and hematocrit, the first of August. Since then, his hypotension has improved. His albumin is still low. Family desired hospitalist to follow as this had happened in the past with Dr. Sanchez, Dr. Caldwell, and Dr. Sosa having followed the patient for review of previous old records. PAST MEDICAL HISTORY: He had been seen by Dr. Doran in the past, but has been over a year since he was seen by a primary care physician. He is followed mostly by Dr. Hazel for the ITP and Dr. Boyd and subsequently Dr. Lozano for the liver problem. Consultation Report [address] [address] NAME: INNA DELGADO : 34 STATUS : ADM IN PAT#: [id number] AGE: 86 ADM/REG DATE : 08/05/16 MR#: [id number] REPORT SERV DATE: 08/22/16 DICTATED BY: CRIS LYNN DATE: 08/22/16 REPORT STATUS : Draft TRANSCRIBED BY: RADHA DATE: 08/22/16 ADMISSION MEDICATIONS: Include the following: Furosemide 40 mg p.o. q.p.m., 80 mg p.o. q.a.m., gabapentin 100 mg p.o. b.i.d., hydrocodone 10/325 one p.o. b.i.d., p.r.n. pain, levothyroxine 50 mcg p.o. daily, mirtazapine 30 mg p.o. at bedtime, rifaximin 550 mg p.o. b.i.d., spironolactone 25 mg p.o. every evening and 50 mg every morning. ALLERGIES: HYDROMORPHONE FROM DILAUDID. SOCIAL HISTORY: He is . Lives with elderly . His has back problems, leg problems, peripheral vascular disease, and saw Dr. Martinez today. He does not smoke, drink, or dip snuff. He was able to walk around outside until he came in the hospital at this time with acute PA. FAMILY HISTORY: Noncontributory. He complains of weakness mostly in the legs. [facility] is seeing the patient with possible initiation of transfer began on 08/17/2016. Discussed again today and they are willing to take the patient. He does have an elevated BUN now up to 98 and Nephrology has been reconsulted. GI has been following as well. There is no evidence of overt bleeding. However, the Hematology feels he has iron deficiency anemia. He is getting IV iron at this point. He has had no swelling or shortness of breath. He has not gotten physical therapy for the last two days. I discussed with Hillary, the nursing home social worker regarding plan for disposition. Remainder of the review of systems was negative. PHYSICAL EXAMINATION: VITAL SIGNS: Blood pressure was 118/72 with a heart rate 70, respiratory rate 16, and afebrile. HEENT: Eyes are sunken. Face is gaunt. NECK: No bruit without any JVD. CHEST: Clear to A and P. HEART: Regular, S1, S2 without murmur, gallop, or click. ABDOMEN: Protuberant, nontender. Bowel sounds are positive. Liver is felt in the right upper quadrant. His large liver edge is palpable and firm about 4 fingerbreadths below the inferior costal margin. EXTREMITIES: Have no edema. No distal pulses are palpable. NEUROLOGIC: He withdraws to plantar stimulation. [employer] is equal and symmetric bilaterally. Coordination intact. He has no asterixis. SKIN: Has multiple ecchymoses and stasis changes. LYMPHATICS: Not palpable. LABORATORY DATA: The creatinine now is 1.78 with a BUN of 79. Sodium 138, potassium 4.3, though the BUN had been as high as 100. His hemoglobin is 10, hematocrit 29.5, and platelet count now is 142,000. Consultation Report [facility] [address] [place]. [address] NAME: INNA DELGADO : 34 STATUS : ADM IN [facility]#: [id number] AGE: 86 ADM/REG DATE : 08/05/16 MR#: [id number] REPORT SERV DATE: 08/22/16 DICTATED BY: CRIS LYNN DATE: 08/22/16 REPORT STATUS : Draft TRANSCRIBED BY: RADHA DATE: 08/22/16 ASSESSMENT: 1. Acute myocardial infarction following the patient's admission. He is on medical therapy now under the care of Dr. Wilson who is the attending physician. 2. Ascites with recurrent paracentesis. The patient had a paracentesis done 10 days ago on 08/12/2016. 3. Cirrhosis of liver due to heterozygous alpha [address] Lozano's note indicates burned-out liver with palliative interventions only. 4. Iron-deficiency anemia. Seen by Dr. Kulkarni most recently, now getting IV iron. I wonder if some of the contribution may be a cirrhotic hemogram. 5. History of idiopathic thrombocytopenic purpura, followed by Dr. Hazel. 6. Chronic kidney disease stage 3 to 4. With limitation of diuretic therapy, high risk for hepatorenal syndrome according to Dr. Lozano. 7. Ischemic cardiomyopathy, ejection fraction 35%. 8. Chronic pain. PLAN: I believe we were consulted to help coordinate care. The patient is wanting to consider [facility], though [facility] him there. He is too weak to go home, but he unrealistically want to go home and have his take care of him. The is refusing to do that. The daughter who initiated consultation is not here today. She is at work. I discussed with the in [facility], is unacceptable to them. He failed physical therapy and quit going to physical therapy at [facility] in [place] previously. Both he and were more inclined to consider [facility], though it would be adequate to consider [facility]. In my opinion and after discussion with nursing home social worker, [facility] will come back and talk to the patient about this as well. says, "doctors are not all in sync with each other and needed someone to look and see if the other doctors were doing their jobs and what is right." Hospitalist Service is willing to help with the coordination of care, though it appears the patient is close to being discharged. The family was not understanding why they were taken off diuretics when they were told to always take them. The patient does seem to have reached maximum hospital benefit and transfer to next level of care is strongly recommended. I discussed this with nursing home social worker today and hope that that can be affected by tomorrow. Thank you the consultation. We will remain available and follow up with you. SEBASTIÁN/RADHA Cris Lynn M.D. Consultation Report [address] [address] NAME: INNA DELGADO : 34 STATUS : ADM IN PAT#: [id number] AGE: 86 ADM/REG DATE : 08/05/16 MR#: [id number] REPORT SERV DATE: 08/22/16 DICTATED BY: CRIS LYNN DATE: 08/22/16 REPORT STATUS : Draft TRANSCRIBED BY: RADHA DATE: 08/22/16 / [id number] CC: MD John Chilel M.D. John Carter Hemphill, MD Michael Goodman, M.D. Freddy Lozano M.D. Darell Kulkarni M.D. Eze Hazel IV, M.D.
[~2016-08-05 19:55] MED LIST: ACET500CAP PO; ADVIL PO; ASAB PO; BLOOD PRESSURE PO; EXFORGE1 TA2 PO; FISH-EPA1000 MG PO; L20 PO; L40 PO; L80 PO; LEVOTHYROXIN50 MCG PO; LOTREL1 CA2 PO; NEUR100 PO; NEUR300 PO; NOR10 PO; NORCO1 TA1 PO; NORCO1 TA2 PO; NORCO1 TAB PO; PREVALITE4 G1 PO; PRILO PO; PROAIR HFA PO; QUESTRAN4 GM PO; REMERON30 MG PO; SPIRIVA INH; SPIRO25; SPIRO25 PO; SPIRO50 PO; SYMBICORT 160/41 INH INH; SYMBICORT 80/4.1 INH; SYN.05 PO; SYNTHROID PO; T PO; VENTOLIN HFA INH; VITE1000 PO; VSL PROBIOTIC PO; XIFAXAN550 MG PO; [UNRECOGNIZED DRUG - OTHER] TOP
[2016-08-05 23:07] LABS: CK-MB 279.9 NG/ML; CKMB INDEX (NOT ORD) 20.8
[2016-08-05 23:52] LABS: HEMOGLOBIN 9.2 g/dL (13.6-17.8)
[2016-08-05 23:56] LABS: HEMATOCRIT 26.8 % (40.0-51.0)
[2016-08-06 04:49] LABS: BASOPHILS 0.4 %; BASOPHILS ABSOLUTE 0.02 10/3/uL (0.0-0.16); EOSINOPHILS 0.9 %; EOSINOPHILS ABSOLUTE 0.05 10/3/uL (0.0-0.53); HEMOGLOBIN 10.9 g/dL (13.6-17.8); IMMATURE GRANULOCYTES 0.2 %; IMMATURE GRANULOCYTES ABSOLUTE 0.01 10/3/uL (0.0-0.11); LYMPHOCYTES ABSOLUTE 1.25 10/3/uL (0.67-4.30); MEAN CORPUS HGB CONC 33.6 g/dL (32.0-36.0); MEAN CORPUSCULAR HEMOGLOB 30.2 pg (26.0-34.0); MEAN PLATELET VOLUME 9.3 fL (9.2-13.0); MONOCYTES ABSOLUTE 0.57 10/3/uL (0.21-1.20); NEUTROPHILS 66.5 %; NEUTROPHILS ABSOLUTE 3.79 10/3/uL (2.02-8.40); PLATELET COUNT 112 10/3/uL (150-400); RBC DISTRIBUTION WIDTH 14.1 % (12.0-16.0); RED CELL COUNT 3.61 10/6/uL (4.7-6.1); WHITE BLOOD CELLS 5.7 10/3/uL (4.5-10.5)
[2016-08-06 04:50] LABS: HEMATOCRIT 32.4 % (40.0-51.0); MANUAL DIFF NO %; MEAN CORPUSCULAR VOLUME 89.8 fL (80-100)
[2016-08-06 07:28] LABS: CALCIUM, SERUM 8.2 MG/DL (8.5-10.4); CHLORIDE, SERUM 104 MMOL/L (96-112); CK-MB 290.3 NG/ML; CO2 (CARBON DIOXIDE) 21 MMOL/L (24-34); CPK 1552 U/L (0-200); CREATININE 1.62 MG/DL (0.70-1.30); GFR AFRICAN AMERICAN 45 ML/MIN (>=60); GFR NON AFRICAN AMERICAN 38 ML/MIN (>=60); GLUCOSE, SERUM 118 MG/DL (60-99); HDL CHOLESTEROL 44 MG/DL (> 39); POTASSIUM, SERUM 4.3 MMOL/L (3.5-5.3); SGPT(ALT) 46 U/L (5-65); SODIUM, SERUM 137 MMOL/L (135-148)
[2016-08-06 07:29] LABS: BUN (BLOOD UREA NITROGEN) 58 MG/DL (6-23); CHOL/HDL RATIO(NOT ORDER) 2.3 (0-5); CHOLESTEROL 100 MG/DL (< 200); CKMB INDEX (NOT ORD) 18.7; LDL CHOLESTEROL 37 MG/DL (< 130); NON-HDL CHOLESTEROL 56 MG/DL (< 160); TRIGLYCERIDE 97 MG/DL (< 150)
[2016-08-06 12:38] LABS: CK-MB 166.7 NG/ML; CKMB INDEX (NOT ORD) 14.8
[2016-08-06 13:18] LABS: TROPONIN I 83.9 NG/ML (<0.05)
[2016-08-06 20:59] LABS: CK-MB 58.9 NG/ML
[2016-08-07 03:40] LABS: HEMATOCRIT 29.6 % (40.0-51.0); HEMOGLOBIN 10.1 g/dL (13.6-17.8); MANUAL DIFF YES %; MEAN CORPUS HGB CONC 34.1 g/dL (32.0-36.0); MEAN CORPUSCULAR HEMOGLOB 30.1 pg (26.0-34.0); MEAN CORPUSCULAR VOLUME 88.4 fL (80-100); MEAN PLATELET VOLUME 9.9 fL (9.2-13.0); PLATELET COUNT 112 10/3/uL (150-400); RED CELL COUNT 3.35 10/6/uL (4.7-6.1); WHITE BLOOD CELLS 8.7 10/3/uL (4.5-10.5)
[2016-08-07 04:02] LABS: BUN (BLOOD UREA NITROGEN) 55 MG/DL (6-23); CHLORIDE, SERUM 101 MMOL/L (96-112); CK-MB 27.2 NG/ML; CO2 (CARBON DIOXIDE) 24 MMOL/L (24-34); CPK 532 U/L (0-200); CREATININE 1.62 MG/DL (0.70-1.30); GFR AFRICAN AMERICAN 45 ML/MIN (>=60); GFR NON AFRICAN AMERICAN 38 ML/MIN (>=60); GLUCOSE, SERUM 103 MG/DL (60-99); POTASSIUM, SERUM 4.7 MMOL/L (3.5-5.3); SODIUM, SERUM 135 MMOL/L (135-148)
[2016-08-07 04:03] LABS: CKMB INDEX (NOT ORD) 5.1
[2016-08-07 04:06] LABS: BAND NEUTROPHILS 1 %; BASOPHILS 2 %; BASOPHILS ABSOLUTE (CALC) 0.17 10/3/uL (0.0-0.16); EOSINOPHILS 1 %; EOSINOPHILS ABSOLUTE (CALC) 0.09 10/3/uL (0.0-0.53); LYMPHOCYTES 12 %; LYMPHOCYTES ABSOLUTE (CALC) 1.04 10/3/uL (0.67-4.30); MONOCYTES 5 %; MONOCYTES ABSOLUTE (CALC) 0.44 10/3/uL (0.21-1.20); NEUTROPHILS ABSOLUTE (CALC) 6.96 10/3/uL (2.02-8.40); PLATELET ESTIMATE SLT DEC (ADEQUATE); RBC MORPHOLOGY NORM (NORMAL); SEGMENTED NEUTROPHIL (0) 79 %; TOTAL NUCLEATED CELLS 100
[2016-08-07 14:09] LABS: ASCORBIC ACID (UR NOT ORDER) NEG (NEG); BILIRUBIN, URINE NEGATIVE (NEG); KETONE, URINE NEGATIVE (NEG); LEUKOCYTE ESTERASE(NOT OR NEG (NEG); WBC (NOT ORDERED) (RFLEX) < 1 (0-5)
[2016-08-08 05:17] LABS: HEMATOCRIT 30.5 % (40.0-51.0); HEMOGLOBIN 10.6 g/dL (13.6-17.8); MEAN CORPUS HGB CONC 34.8 g/dL (32.0-36.0); MEAN CORPUSCULAR HEMOGLOB 30.8 pg (26.0-34.0); MEAN CORPUSCULAR VOLUME 88.7 fL (80-100); MEAN PLATELET VOLUME 10.1 fL (9.2-13.0); PLATELET COUNT 144 10/3/uL (150-400); RBC DISTRIBUTION WIDTH 14.2 % (12.0-16.0); RED CELL COUNT 3.44 10/6/uL (4.7-6.1); WHITE BLOOD CELLS 11.4 10/3/uL (4.5-10.5)
[2016-08-08 05:28] LABS: MANUAL DIFF YES %
[2016-08-08 05:36] LABS: CALCIUM, SERUM 7.7 MG/DL (8.5-10.4); CHLORIDE, SERUM 102 MMOL/L (96-112); CREATININE 1.94 MG/DL (0.70-1.30); GFR AFRICAN AMERICAN 36 ML/MIN (>=60); GFR NON AFRICAN AMERICAN 31 ML/MIN (>=60); GLUCOSE, SERUM 95 MG/DL (60-99); POTASSIUM, SERUM 4.7 MMOL/L (3.5-5.3); SODIUM, SERUM 134 MMOL/L (135-148)
[2016-08-08 05:46] LABS: BUN (BLOOD UREA NITROGEN) 69 MG/DL (6-23); CO2 (CARBON DIOXIDE) 19 MMOL/L (24-34)
[2016-08-08 06:32] LABS: BAND NEUTROPHILS 4 %; LYMPHOCYTES 16 %; LYMPHOCYTES ABSOLUTE (CALC) 1.82 10/3/uL (0.67-4.30); MONOCYTES 7 %; NEUTROPHILS ABSOLUTE (CALC) 8.78 10/3/uL (2.02-8.40); SEGMENTED NEUTROPHIL (0) 73 %; TOTAL NUCLEATED CELLS 100
[2016-08-08 06:33] LABS: PLATELET ESTIMATE ADQ (ADEQUATE); RBC MORPHOLOGY NORM (NORMAL)
[2016-08-09 07:07] LABS: BASOPHILS 0.4 %; BASOPHILS ABSOLUTE 0.03 10/3/uL (0.0-0.16); EOSINOPHILS 3.2 %; EOSINOPHILS ABSOLUTE 0.26 10/3/uL (0.0-0.53); HEMATOCRIT 28.6 % (40.0-51.0); IMMATURE GRANULOCYTES 0.2 %; IMMATURE GRANULOCYTES ABSOLUTE 0.02 10/3/uL (0.0-0.11); LYMPHOCYTES 16.9 %; LYMPHOCYTES ABSOLUTE 1.36 10/3/uL (0.67-4.30); MEAN CORPUSCULAR HEMOGLOB 30.5 pg (26.0-34.0); MEAN CORPUSCULAR VOLUME 87.2 fL (80-100); MEAN PLATELET VOLUME 9.5 fL (9.2-13.0); MONOCYTES 8.6 %; MONOCYTES ABSOLUTE 0.69 10/3/uL (0.21-1.20); NEUTROPHILS 70.7 %; NEUTROPHILS ABSOLUTE 5.68 10/3/uL (2.02-8.40); PLATELET COUNT 155 10/3/uL (150-400); RBC DISTRIBUTION WIDTH 14.4 % (12.0-16.0); RED CELL COUNT 3.28 10/6/uL (4.7-6.1)
[2016-08-09 07:16] LABS: CALCIUM, SERUM 7.6 MG/DL (8.5-10.4); CHLORIDE, SERUM 102 MMOL/L (96-112); CO2 (CARBON DIOXIDE) 22 MMOL/L (24-34); CREATININE 1.89 MG/DL (0.70-1.30); GFR AFRICAN AMERICAN 37 ML/MIN (>=60); GFR NON AFRICAN AMERICAN 32 ML/MIN (>=60); GLUCOSE, SERUM 102 MG/DL (60-99); POTASSIUM, SERUM 4.5 MMOL/L (3.5-5.3); SODIUM, SERUM 136 MMOL/L (135-148)
[2016-08-09 07:18] LABS: BUN (BLOOD UREA NITROGEN) 78 MG/DL (6-23)
[2016-08-09 07:20] LABS: MANUAL DIFF NO %
[2016-08-10 05:59] LABS: BASOPHILS 0.6 %; BASOPHILS ABSOLUTE 0.04 10/3/uL (0.0-0.16); EOSINOPHILS 5.6 %; EOSINOPHILS ABSOLUTE 0.39 10/3/uL (0.0-0.53); HEMATOCRIT 27.8 % (40.0-51.0); HEMOGLOBIN 9.8 g/dL (13.6-17.8); IMMATURE GRANULOCYTES 0.1 %; IMMATURE GRANULOCYTES ABSOLUTE 0.01 10/3/uL (0.0-0.11); LYMPHOCYTES 22.5 %; LYMPHOCYTES ABSOLUTE 1.57 10/3/uL (0.67-4.30); MEAN CORPUS HGB CONC 35.3 g/dL (32.0-36.0); MEAN CORPUSCULAR HEMOGLOB 30.6 pg (26.0-34.0); MEAN CORPUSCULAR VOLUME 86.9 fL (80-100); MONOCYTES ABSOLUTE 0.77 10/3/uL (0.21-1.20); NEUTROPHILS 60.2 %; NEUTROPHILS ABSOLUTE 4.21 10/3/uL (2.02-8.40); PLATELET COUNT 172 10/3/uL (150-400); RBC DISTRIBUTION WIDTH 14.5 % (12.0-16.0)
[2016-08-10 06:03] LABS: MANUAL DIFF NO %
[2016-08-10 06:13] LABS: BUN (BLOOD UREA NITROGEN) 76 MG/DL (6-23); CALCIUM, SERUM 7.4 MG/DL (8.5-10.4); CHLORIDE, SERUM 104 MMOL/L (96-112); CO2 (CARBON DIOXIDE) 19 MMOL/L (24-34); CREATININE 1.66 MG/DL (0.70-1.30); GFR AFRICAN AMERICAN 43 ML/MIN (>=60); GFR NON AFRICAN AMERICAN 37 ML/MIN (>=60); GLUCOSE, SERUM 93 MG/DL (60-99); POTASSIUM, SERUM 4.7 MMOL/L (3.5-5.3); SODIUM, SERUM 135 MMOL/L (135-148)
[2016-08-11 06:23] LABS: BASOPHILS ABSOLUTE 0.06 10/3/uL (0.0-0.16); EOSINOPHILS 3.6 %; EOSINOPHILS ABSOLUTE 0.22 10/3/uL (0.0-0.53); HEMATOCRIT 28.8 % (40.0-51.0); HEMOGLOBIN 10.1 g/dL (13.6-17.8); IMMATURE GRANULOCYTES 0.2 %; IMMATURE GRANULOCYTES ABSOLUTE 0.01 10/3/uL (0.0-0.11); LYMPHOCYTES 17.4 %; LYMPHOCYTES ABSOLUTE 1.06 10/3/uL (0.67-4.30); MEAN CORPUS HGB CONC 35.1 g/dL (32.0-36.0); MEAN CORPUSCULAR HEMOGLOB 30.3 pg (26.0-34.0); MEAN CORPUSCULAR VOLUME 86.5 fL (80-100); MEAN PLATELET VOLUME 9.4 fL (9.2-13.0); MONOCYTES 12.3 %; MONOCYTES ABSOLUTE 0.75 10/3/uL (0.21-1.20); NEUTROPHILS 65.5 %; PLATELET COUNT 197 10/3/uL (150-400); RBC DISTRIBUTION WIDTH 14.4 % (12.0-16.0); RED CELL COUNT 3.33 10/6/uL (4.7-6.1); WHITE BLOOD CELLS 6.1 10/3/uL (4.5-10.5)
[2016-08-11 06:25] LABS: MANUAL DIFF NO %
[2016-08-11 06:30] LABS: CALCIUM, SERUM 7.4 MG/DL (8.5-10.4); CHLORIDE, SERUM 103 MMOL/L (96-112); CO2 (CARBON DIOXIDE) 20 MMOL/L (24-34); CREATININE 1.76 MG/DL (0.70-1.30); GFR AFRICAN AMERICAN 40 ML/MIN (>=60); GFR NON AFRICAN AMERICAN 35 ML/MIN (>=60); GLUCOSE, SERUM 102 MG/DL (60-99); POTASSIUM, SERUM 4.4 MMOL/L (3.5-5.3); SODIUM, SERUM 137 MMOL/L (135-148)
[2016-08-11 06:31] LABS: BUN (BLOOD UREA NITROGEN) 69 MG/DL (6-23)
[2016-08-12 05:24] LABS: BASOPHILS 0.5 %; BASOPHILS ABSOLUTE 0.03 10/3/uL (0.0-0.16); EOSINOPHILS 1.4 %; EOSINOPHILS ABSOLUTE 0.08 10/3/uL (0.0-0.53); HEMATOCRIT 26.5 % (40.0-51.0); HEMOGLOBIN 9.1 g/dL (13.6-17.8); IMMATURE GRANULOCYTES 0.3 %; IMMATURE GRANULOCYTES ABSOLUTE 0.02 10/3/uL (0.0-0.11); LYMPHOCYTES 24.5 %; LYMPHOCYTES ABSOLUTE 1.45 10/3/uL (0.67-4.30); MEAN CORPUS HGB CONC 34.3 g/dL (32.0-36.0); MEAN CORPUSCULAR HEMOGLOB 30.1 pg (26.0-34.0); MEAN CORPUSCULAR VOLUME 87.7 fL (80-100); MEAN PLATELET VOLUME 9.1 fL (9.2-13.0); MONOCYTES 10.8 %; MONOCYTES ABSOLUTE 0.64 10/3/uL (0.21-1.20); NEUTROPHILS 62.5 %; NEUTROPHILS ABSOLUTE 3.69 10/3/uL (2.02-8.40); PLATELET COUNT 181 10/3/uL (150-400); RBC DISTRIBUTION WIDTH 14.5 % (12.0-16.0); RED CELL COUNT 3.02 10/6/uL (4.7-6.1); WHITE BLOOD CELLS 5.9 10/3/uL (4.5-10.5)
[2016-08-12 05:31] LABS: MANUAL DIFF NO %
[2016-08-12 05:39] LABS: CALCIUM, SERUM 7.5 MG/DL (8.5-10.4); CHLORIDE, SERUM 102 MMOL/L (96-112); CO2 (CARBON DIOXIDE) 22 MMOL/L (24-34); CREATININE 1.79 MG/DL (0.70-1.30); GFR AFRICAN AMERICAN 39 ML/MIN (>=60); GFR NON AFRICAN AMERICAN 34 ML/MIN (>=60); GLUCOSE, SERUM 103 MG/DL (60-99); POTASSIUM, SERUM 4.8 MMOL/L (3.5-5.3); SODIUM, SERUM 137 MMOL/L (135-148)
[2016-08-12 05:45] LABS: BUN (BLOOD UREA NITROGEN) 81 MG/DL (6-23)
[2016-08-12 09:38] LABS: ALBUMIN 2.2 G/DL (3.5-5.0); TOTAL PROTEIN 5.6 G/DL (6.0-8.5)
[2016-08-12 10:21] LABS: INTERNATIONAL NORMAL RATI 1.6 UNITS (-)
[2016-08-12 10:22] LABS: PARTIAL THROMBO TIME 35.3 SEC (22.5-37.2)
[2016-08-13 04:22] LABS: BASOPHILS 0.4 %; BASOPHILS ABSOLUTE 0.03 10/3/uL (0.0-0.16); EOSINOPHILS 1.2 %; EOSINOPHILS ABSOLUTE 0.09 10/3/uL (0.0-0.53); HEMATOCRIT 21.8 % (40.0-51.0); HEMOGLOBIN 7.5 g/dL (13.6-17.8); IMMATURE GRANULOCYTES 0.4 %; IMMATURE GRANULOCYTES ABSOLUTE 0.03 10/3/uL (0.0-0.11); LYMPHOCYTES 20.6 %; LYMPHOCYTES ABSOLUTE 1.57 10/3/uL (0.67-4.30); MANUAL DIFF NO %; MEAN CORPUS HGB CONC 34.4 g/dL (32.0-36.0); MEAN CORPUSCULAR HEMOGLOB 30.2 pg (26.0-34.0); MEAN CORPUSCULAR VOLUME 87.9 fL (80-100); MEAN PLATELET VOLUME 9.7 fL (9.2-13.0); MONOCYTES 10.1 %; MONOCYTES ABSOLUTE 0.77 10/3/uL (0.21-1.20); NEUTROPHILS 67.3 %; NEUTROPHILS ABSOLUTE 5.13 10/3/uL (2.02-8.40); PLATELET COUNT 163 10/3/uL (150-400); RBC DISTRIBUTION WIDTH 14.4 % (12.0-16.0); RED CELL COUNT 2.48 10/6/uL (4.7-6.1); WHITE BLOOD CELLS 7.6 10/3/uL (4.5-10.5)
[2016-08-13 04:35] LABS: CALCIUM, SERUM 7.7 MG/DL (8.5-10.4); CHLORIDE, SERUM 103 MMOL/L (96-112); CO2 (CARBON DIOXIDE) 22 MMOL/L (24-34); CREATININE 2.12 MG/DL (0.70-1.30); GFR AFRICAN AMERICAN 32 ML/MIN (>=60); GFR NON AFRICAN AMERICAN 28 ML/MIN (>=60); GLUCOSE, SERUM 110 MG/DL (60-99); POTASSIUM, SERUM 4.8 MMOL/L (3.5-5.3); SODIUM, SERUM 140 MMOL/L (135-148)
[2016-08-13 04:39] LABS: BUN (BLOOD UREA NITROGEN) 99 MG/DL (6-23)
[2016-08-13 10:15] LABS: HEMATOCRIT 19.4 % (40.0-51.0); HEMOGLOBIN 6.7 g/dL (13.6-17.8)
[2016-08-13 16:06] LABS: HEMATOCRIT 16.7 % (40.0-51.0); HEMOGLOBIN 5.6 g/dL (13.6-17.8)
[2016-08-13 20:22] LABS: ASCORBIC ACID (UR NOT ORDER) NEG (NEG); BILIRUBIN, URINE NEGATIVE (NEG); KETONE, URINE NEGATIVE (NEG); LEUKOCYTE ESTERASE(NOT OR NEG (NEG); WBC (NOT ORDERED) (RFLEX) 3 (0-5)
[2016-08-14 00:42] LABS: HEMATOCRIT 25.8 % (40.0-51.0); HEMOGLOBIN 8.9 g/dL (13.6-17.8)
[2016-08-14 05:09] LABS: BASOPHILS 0.5 %; BASOPHILS ABSOLUTE 0.03 10/3/uL (0.0-0.16); EOSINOPHILS 5.9 %; EOSINOPHILS ABSOLUTE 0.39 10/3/uL (0.0-0.53); HEMATOCRIT 24.3 % (40.0-51.0); HEMOGLOBIN 8.5 g/dL (13.6-17.8); IMMATURE GRANULOCYTES 0.5 %; IMMATURE GRANULOCYTES ABSOLUTE 0.03 10/3/uL (0.0-0.11); LYMPHOCYTES 19.6 %; LYMPHOCYTES ABSOLUTE 1.29 10/3/uL (0.67-4.30); MEAN CORPUSCULAR HEMOGLOB 29.7 pg (26.0-34.0); MONOCYTES 10.2 %; MONOCYTES ABSOLUTE 0.67 10/3/uL (0.21-1.20); NEUTROPHILS 63.3 %; NEUTROPHILS ABSOLUTE 4.18 10/3/uL (2.02-8.40); PLATELET COUNT 146 10/3/uL (150-400); RBC DISTRIBUTION WIDTH 15.2 % (12.0-16.0); RED CELL COUNT 2.86 10/6/uL (4.7-6.1); WHITE BLOOD CELLS 6.6 10/3/uL (4.5-10.5)
[2016-08-14 05:11] LABS: MANUAL DIFF NO %
[2016-08-14 05:16] LABS: INTERNATIONAL NORMAL RATI 1.7 UNITS (-); PARTIAL THROMBO TIME 37.8 SEC (22.5-37.2); PROTIME (NOT ORD) 19.7 SEC (12.0-14.5)
[2016-08-14 05:33] LABS: A/G RATIO 0.8 (0.7-1.9); ALBUMIN 2.3 G/DL (3.5-5.0); BUN (BLOOD UREA NITROGEN) 98 MG/DL (6-23); CALCIUM, SERUM 7.3 MG/DL (8.5-10.4); CHLORIDE, SERUM 109 MMOL/L (96-112); CO2 (CARBON DIOXIDE) 19 MMOL/L (24-34); CREATININE 1.85 MG/DL (0.70-1.30); GFR AFRICAN AMERICAN 38 ML/MIN (>=60); GFR NON AFRICAN AMERICAN 33 ML/MIN (>=60); GLOBULIN 2.8 G/DL (2.5-4.1); GLUCOSE, SERUM 89 MG/DL (60-99); POTASSIUM, SERUM 4.7 MMOL/L (3.5-5.3); SGOT(AST) 36 U/L (5-40); SGPT(ALT) 19 U/L (5-65); SODIUM, SERUM 140 MMOL/L (135-148); TOTAL PROTEIN 5.1 G/DL (6.0-8.5)
[2016-08-14 05:37] LABS: ALKALINE PHOSPHATASE 71 U/L (45-117); PHOSPHORUS, SERUM 2.7 MG/DL (2.5-4.5); TOTAL BILIRUBIN 1.4 MG/DL (0-1.2)
[2016-08-14 11:33] LABS: HEMATOCRIT 26.1 % (40.0-51.0); HEMOGLOBIN 9.3 g/dL (13.6-17.8)
[2016-08-15 00:51] LABS: HEMATOCRIT 24.4 % (40.0-51.0); HEMOGLOBIN 8.5 g/dL (13.6-17.8)
[2016-08-15 04:10] LABS: BASOPHILS 0.6 %; BASOPHILS ABSOLUTE 0.05 10/3/uL (0.0-0.16); EOSINOPHILS 4.7 %; EOSINOPHILS ABSOLUTE 0.41 10/3/uL (0.0-0.53); HEMATOCRIT 24.2 % (40.0-51.0); HEMOGLOBIN 8.4 g/dL (13.6-17.8); IMMATURE GRANULOCYTES 0.5 %; IMMATURE GRANULOCYTES ABSOLUTE 0.04 10/3/uL (0.0-0.11); LYMPHOCYTES 19.5 %; LYMPHOCYTES ABSOLUTE 1.72 10/3/uL (0.67-4.30); MEAN CORPUS HGB CONC 34.7 g/dL (32.0-36.0); MEAN CORPUSCULAR HEMOGLOB 30.2 pg (26.0-34.0); MEAN CORPUSCULAR VOLUME 87.1 fL (80-100); MEAN PLATELET VOLUME 9.2 fL (9.2-13.0); MONOCYTES ABSOLUTE 0.79 10/3/uL (0.21-1.20); NEUTROPHILS 65.7 %; NEUTROPHILS ABSOLUTE 5.79 10/3/uL (2.02-8.40); PLATELET COUNT 186 10/3/uL (150-400); RBC DISTRIBUTION WIDTH 15.4 % (12.0-16.0); RED CELL COUNT 2.78 10/6/uL (4.7-6.1); WHITE BLOOD CELLS 8.8 10/3/uL (4.5-10.5)
[2016-08-15 04:14] LABS: MANUAL DIFF NO %
[2016-08-15 04:28] LABS: BUN (BLOOD UREA NITROGEN) 99 MG/DL (6-23); CALCIUM, SERUM 7.2 MG/DL (8.5-10.4); CHLORIDE, SERUM 108 MMOL/L (96-112); CO2 (CARBON DIOXIDE) 19 MMOL/L (24-34); CREATININE 1.91 MG/DL (0.70-1.30); GFR AFRICAN AMERICAN 36 ML/MIN (>=60); GFR NON AFRICAN AMERICAN 31 ML/MIN (>=60); POTASSIUM, SERUM 4.7 MMOL/L (3.5-5.3); SODIUM, SERUM 139 MMOL/L (135-148)
[2016-08-15 04:29] LABS: GLUCOSE, SERUM 117 MG/DL (60-99)
[2016-08-15 09:26] LABS: HEMATOCRIT 24.7 % (40.0-51.0); HEMOGLOBIN 8.4 g/dL (13.6-17.8)
[2016-08-16 09:17] LABS: HEMOGLOBIN 7.4 g/dL (13.6-17.8); MEAN CORPUS HGB CONC 34.1 g/dL (32.0-36.0); MEAN CORPUSCULAR HEMOGLOB 29.8 pg (26.0-34.0); MEAN CORPUSCULAR VOLUME 87.5 fL (80-100); MEAN PLATELET VOLUME 9.1 fL (9.2-13.0); PLATELET COUNT 169 10/3/uL (150-400); RBC DISTRIBUTION WIDTH 15.6 % (12.0-16.0); RED CELL COUNT 2.48 10/6/uL (4.7-6.1); WHITE BLOOD CELLS 8.4 10/3/uL (4.5-10.5)
[2016-08-16 09:18] LABS: HEMATOCRIT 21.7 % (40.0-51.0); MANUAL DIFF YES %
[2016-08-16 09:23] LABS: INTERNATIONAL NORMAL RATI 1.7 UNITS (-); PROTIME (NOT ORD) 19.8 SEC (12.0-14.5)
[2016-08-16 09:33] LABS: A/G RATIO 0.8 (0.7-1.9); ALBUMIN 2.3 G/DL (3.5-5.0); BUN (BLOOD UREA NITROGEN) 98 MG/DL (6-23); CALCIUM, SERUM 7.4 MG/DL (8.5-10.4); CHLORIDE, SERUM 106 MMOL/L (96-112); CO2 (CARBON DIOXIDE) 17 MMOL/L (24-34); CREATININE 1.84 MG/DL (0.70-1.30); GFR AFRICAN AMERICAN 38 ML/MIN (>=60); GFR NON AFRICAN AMERICAN 33 ML/MIN (>=60); GLOBULIN 2.9 G/DL (2.5-4.1); GLUCOSE, SERUM 125 MG/DL (60-99); PHOSPHORUS, SERUM 3.2 MG/DL (2.5-4.5); POTASSIUM, SERUM 4.6 MMOL/L (3.5-5.3); SGOT(AST) 39 U/L (5-40); SGPT(ALT) 20 U/L (5-65); SODIUM, SERUM 136 MMOL/L (135-148); TOTAL PROTEIN 5.2 G/DL (6.0-8.5)
[2016-08-16 09:34] LABS: ALKALINE PHOSPHATASE 96 U/L (45-117); TOTAL BILIRUBIN 0.5 MG/DL (0-1.2)
[2016-08-16 10:02] LABS: BAND NEUTROPHILS 1 %; EOSINOPHILS 4 %; EOSINOPHILS ABSOLUTE (CALC) 0.34 10/3/uL (0.0-0.53); LYMPHOCYTES 14 %; LYMPHOCYTES ABSOLUTE (CALC) 1.18 10/3/uL (0.67-4.30); MONOCYTES 4 %; MONOCYTES ABSOLUTE (CALC) 0.34 10/3/uL (0.21-1.20); NEUTROPHILS ABSOLUTE (CALC) 6.55 10/3/uL (2.02-8.40); SEGMENTED NEUTROPHIL (0) 77 %; TOTAL NUCLEATED CELLS 100
[2016-08-16 10:03] LABS: PLATELET ESTIMATE ADQ (ADEQUATE); RBC MORPHOLOGY NORM (NORMAL)
[2016-08-16 14:57] LABS: HEMOGLOBIN 6.9 g/dL (13.6-17.8)
[2016-08-17 07:16] LABS: BASOPHILS 0.8 %; BASOPHILS ABSOLUTE 0.07 10/3/uL (0.0-0.16); EOSINOPHILS 4.4 %; IMMATURE GRANULOCYTES 0.5 %; IMMATURE GRANULOCYTES ABSOLUTE 0.05 10/3/uL (0.0-0.11); LYMPHOCYTES 21.3 %; LYMPHOCYTES ABSOLUTE 1.94 10/3/uL (0.67-4.30); MEAN CORPUS HGB CONC 35.5 g/dL (32.0-36.0); MEAN CORPUSCULAR HEMOGLOB 31.1 pg (26.0-34.0); MEAN CORPUSCULAR VOLUME 87.4 fL (80-100); MEAN PLATELET VOLUME 9.6 fL (9.2-13.0); MONOCYTES 7.9 %; MONOCYTES ABSOLUTE 0.72 10/3/uL (0.21-1.20); NEUTROPHILS 65.1 %; NEUTROPHILS ABSOLUTE 5.93 10/3/uL (2.02-8.40); PLATELET COUNT 191 10/3/uL (150-400); RBC DISTRIBUTION WIDTH 15.4 % (12.0-16.0); RED CELL COUNT 2.93 10/6/uL (4.7-6.1); WHITE BLOOD CELLS 9.1 10/3/uL (4.5-10.5)
[2016-08-17 07:17] LABS: HEMATOCRIT 25.6 % (40.0-51.0); HEMOGLOBIN 9.1 g/dL (13.6-17.8); MANUAL DIFF NO %
[2016-08-17 07:19] LABS: BUN (BLOOD UREA NITROGEN) 98 MG/DL (6-23); CALCIUM, SERUM 7.4 MG/DL (8.5-10.4); CHLORIDE, SERUM 106 MMOL/L (96-112); CO2 (CARBON DIOXIDE) 17 MMOL/L (24-34); CREATININE 1.74 MG/DL (0.70-1.30); GFR AFRICAN AMERICAN 41 ML/MIN (>=60); GFR NON AFRICAN AMERICAN 35 ML/MIN (>=60); POTASSIUM, SERUM 4.5 MMOL/L (3.5-5.3); SODIUM, SERUM 136 MMOL/L (135-148)
[2016-08-17 07:20] LABS: GLUCOSE, SERUM 93 MG/DL (60-99)
[2016-08-17 19:44] LABS: HEMATOCRIT 25.6 % (40.0-51.0); HEMOGLOBIN 9.3 g/dL (13.6-17.8)
[2016-08-18 04:38] LABS: HEMATOCRIT 24.5 % (40.0-51.0); HEMOGLOBIN 8.6 g/dL (13.6-17.8)
[2016-08-19 12:42] LABS: HEMATOCRIT 22.7 % (40.0-51.0); HEMOGLOBIN 7.8 g/dL (13.6-17.8); MEAN CORPUS HGB CONC 34.4 g/dL (32.0-36.0); MEAN CORPUSCULAR HEMOGLOB 30.5 pg (26.0-34.0); MEAN CORPUSCULAR VOLUME 88.7 fL (80-100); MEAN PLATELET VOLUME 8.9 fL (9.2-13.0); PLATELET COUNT 170 10/3/uL (150-400); RBC DISTRIBUTION WIDTH 16.1 % (12.0-16.0); RED CELL COUNT 2.56 10/6/uL (4.7-6.1); WHITE BLOOD CELLS 9.8 10/3/uL (4.5-10.5)
[2016-08-19 12:45] LABS: MANUAL DIFF YES %
[2016-08-19 13:17] LABS: BAND NEUTROPHILS 3 %; EOSINOPHILS 2 %; LYMPHOCYTES 16 %; LYMPHOCYTES ABSOLUTE (CALC) 1.57 10/3/uL (0.67-4.30); MONOCYTES 3 %; MONOCYTES ABSOLUTE (CALC) 0.29 10/3/uL (0.21-1.20); NEUTROPHILS ABSOLUTE (CALC) 7.74 10/3/uL (2.02-8.40); PLATELET ESTIMATE ADQ (ADEQUATE); SEGMENTED NEUTROPHIL (0) 76 %; TOTAL NUCLEATED CELLS 100
[2016-08-19 13:22] LABS: POLYCHROMASIA 1+ (2-5/OIF) (0-1/OIF)
[2016-08-19 15:10] LABS: BF ALBUMIN 0.5 G/DL
[2016-08-19 15:22] LABS: BD FL LYMPH (NOT ORD) 66 %; BF BASO (NOT OF) 0 %; BF LARGE MONONUCLEAR 29 %; BODY FLUID EOS (NOT ORD) 0 %; BODY FLUID SEG (NOT ORD) 5 %
[2016-08-19 15:26] LABS: BD FL SOURCE (NOT ORD) ASCITES
[2016-08-19 15:38] LABS: BF TOTAL CELL CT (NOT ORD 105 /MM3; BODY FLUID RBC (NOT ORD) < 1000 /MM3
[2016-08-20 04:55] LABS: MEAN CORPUS HGB CONC 33.9 g/dL (32.0-36.0); MEAN CORPUSCULAR HEMOGLOB 30.5 pg (26.0-34.0); MEAN PLATELET VOLUME 8.3 fL (9.2-13.0); PLATELET COUNT 135 10/3/uL (150-400); RBC DISTRIBUTION WIDTH 16.4 % (12.0-16.0); WHITE BLOOD CELLS 6.3 10/3/uL (4.5-10.5)
[2016-08-20 04:56] LABS: HEMATOCRIT 18.9 % (40.0-51.0); HEMOGLOBIN 6.4 g/dL (13.6-17.8)
[2016-08-20 04:58] LABS: MANUAL DIFF YES %
[2016-08-20 05:07] LABS: BUN (BLOOD UREA NITROGEN) 99 MG/DL (6-23); CALCIUM, SERUM 7.7 MG/DL (8.5-10.4); CHLORIDE, SERUM 107 MMOL/L (96-112); CO2 (CARBON DIOXIDE) 18 MMOL/L (24-34); CREATININE 1.68 MG/DL (0.70-1.30); GFR AFRICAN AMERICAN 43 ML/MIN (>=60); GFR NON AFRICAN AMERICAN 37 ML/MIN (>=60); GLUCOSE, SERUM 103 MG/DL (60-99); POTASSIUM, SERUM 4.2 MMOL/L (3.5-5.3); SODIUM, SERUM 136 MMOL/L (135-148)
[2016-08-20 05:25] LABS: BAND NEUTROPHILS 2 %; EOSINOPHILS 2 %; EOSINOPHILS ABSOLUTE (CALC) 0.13 10/3/uL (0.0-0.53); LYMPHOCYTES 10 %; LYMPHOCYTES ABSOLUTE (CALC) 0.63 10/3/uL (0.67-4.30); MONOCYTES 2 %; MONOCYTES ABSOLUTE (CALC) 0.13 10/3/uL (0.21-1.20); NEUTROPHILS ABSOLUTE (CALC) 5.42 10/3/uL (2.02-8.40); PLATELET ESTIMATE SLT DEC (ADEQUATE); POLYCHROMASIA 1+ (2-5/OIF) (0-1/OIF); SEGMENTED NEUTROPHIL (0) 84 %; TOTAL NUCLEATED CELLS 100
[2016-08-20 09:11] LABS: RETICULOCYTE COUNT 7.4 % (0.5-2.9)
[2016-08-20 09:12] LABS: RETICULOCYTE COUNT ABSOLUTE 151.8 10/3/uL (20.2-119.8)
[2016-08-20 09:44] LABS: % IRON SAT 14 % (20-50); DIRECT BILIRUBIN 0.2 MG/DL (0.0-0.4); FERRITIN 14 NG/ML (26-388); FOLATE 18.6 NG/ML (>5.2); INDIRECT BILIRUBIN(NOT ORDER) 0.4 MG/DL (0.1-0.9); IRON BINDING CAPACITY 237 MCG/DL (250-450); IRON, SERUM 32 MCG/DL (35-150); TOTAL BILIRUBIN 0.6 MG/DL (0-1.2)
[2016-08-21 05:56] LABS: BASOPHILS 0.4 %; BASOPHILS ABSOLUTE 0.03 10/3/uL (0.0-0.16); EOSINOPHILS 5.3 %; HEMATOCRIT 28.2 % (40.0-51.0); HEMOGLOBIN 9.8 g/dL (13.6-17.8); IMMATURE GRANULOCYTES 0.3 %; IMMATURE GRANULOCYTES ABSOLUTE 0.02 10/3/uL (0.0-0.11); LYMPHOCYTES ABSOLUTE 1.36 10/3/uL (0.67-4.30); MANUAL DIFF NO %; MEAN CORPUS HGB CONC 34.8 g/dL (32.0-36.0); MEAN CORPUSCULAR HEMOGLOB 30.3 pg (26.0-34.0); MEAN CORPUSCULAR VOLUME 87.3 fL (80-100); MONOCYTES 9.1 %; MONOCYTES ABSOLUTE 0.69 10/3/uL (0.21-1.20); NEUTROPHILS 66.9 %; NEUTROPHILS ABSOLUTE 5.07 10/3/uL (2.02-8.40); PLATELET COUNT 147 10/3/uL (150-400); RBC DISTRIBUTION WIDTH 16.7 % (12.0-16.0); RED CELL COUNT 3.23 10/6/uL (4.7-6.1); WHITE BLOOD CELLS 7.6 10/3/uL (4.5-10.5)
[2016-08-22 05:53] LABS: BASOPHILS 0.4 %; BASOPHILS ABSOLUTE 0.04 10/3/uL (0.0-0.16); EOSINOPHILS 2.2 %; EOSINOPHILS ABSOLUTE 0.23 10/3/uL (0.0-0.53); HEMATOCRIT 29.5 % (40.0-51.0); HEMOGLOBIN 10.1 g/dL (13.6-17.8); IMMATURE GRANULOCYTES 0.4 %; IMMATURE GRANULOCYTES ABSOLUTE 0.04 10/3/uL (0.0-0.11); LYMPHOCYTES 9.9 %; LYMPHOCYTES ABSOLUTE 1.03 10/3/uL (0.67-4.30); MEAN CORPUS HGB CONC 34.2 g/dL (32.0-36.0); MEAN CORPUSCULAR HEMOGLOB 30.6 pg (26.0-34.0); MEAN CORPUSCULAR VOLUME 89.4 fL (80-100); MONOCYTES 4.4 %; MONOCYTES ABSOLUTE 0.46 10/3/uL (0.21-1.20); NEUTROPHILS 82.7 %; NEUTROPHILS ABSOLUTE 8.63 10/3/uL (2.02-8.40); PLATELET COUNT 142 10/3/uL (150-400); RBC DISTRIBUTION WIDTH 16.5 % (12.0-16.0); WHITE BLOOD CELLS 10.4 10/3/uL (4.5-10.5)
[2016-08-22 05:57] LABS: MANUAL DIFF NO %
[2016-08-22 06:04] LABS: BUN (BLOOD UREA NITROGEN) 79 MG/DL (6-23); CALCIUM, SERUM 7.7 MG/DL (8.5-10.4); CHLORIDE, SERUM 107 MMOL/L (96-112); CO2 (CARBON DIOXIDE) 18 MMOL/L (24-34); CREATININE 1.78 MG/DL (0.70-1.30); GFR AFRICAN AMERICAN 40 ML/MIN (>=60); GFR NON AFRICAN AMERICAN 34 ML/MIN (>=60); GLUCOSE, SERUM 96 MG/DL (60-99); POTASSIUM, SERUM 4.3 MMOL/L (3.5-5.3); SODIUM, SERUM 138 MMOL/L (135-148)
[2016-08-22 06:19] LABS: INTERNATIONAL NORMAL RATI 1.7 UNITS (-); PROTIME (NOT ORD) 19.4 SEC (12.0-14.5)
[2016-08-22 08:26] LABS: PHOSPHORUS, SERUM 4.4 MG/DL (2.5-4.5)
[2016-08-23 07:27] LABS: HEMATOCRIT 28.8 % (40.0-51.0); HEMOGLOBIN 10.1 g/dL (13.6-17.8); MANUAL DIFF YES %; MEAN CORPUS HGB CONC 35.1 g/dL (32.0-36.0); MEAN CORPUSCULAR HEMOGLOB 30.5 pg (26.0-34.0); PLATELET COUNT 152 10/3/uL (150-400); RBC DISTRIBUTION WIDTH 16.7 % (12.0-16.0); RED CELL COUNT 3.31 10/6/uL (4.7-6.1); WHITE BLOOD CELLS 13.5 10/3/uL (4.5-10.5)
[2016-08-23 07:34] LABS: PROTIME (NOT ORD) 22.5 SEC (12.0-14.5)
[2016-08-23 07:43] LABS: A/G RATIO 0.9 (0.7-1.9); ALBUMIN 2.6 G/DL (3.5-5.0); ALKALINE PHOSPHATASE 106 U/L (45-117); BUN (BLOOD UREA NITROGEN) 79 MG/DL (6-23); CALCIUM, SERUM 7.7 MG/DL (8.5-10.4); CHLORIDE, SERUM 102 MMOL/L (96-112); CO2 (CARBON DIOXIDE) 19 MMOL/L (24-34); CREATININE 1.84 MG/DL (0.70-1.30); DIRECT BILIRUBIN 0.4 MG/DL (0.0-0.4); GFR AFRICAN AMERICAN 38 ML/MIN (>=60); GFR NON AFRICAN AMERICAN 33 ML/MIN (>=60); GLUCOSE, SERUM 93 MG/DL (60-99); INDIRECT BILIRUBIN(NOT ORDER) 0.4 MG/DL (0.1-0.9); PHOSPHORUS, SERUM 3.7 MG/DL (2.5-4.5); POTASSIUM, SERUM 4.4 MMOL/L (3.5-5.3); SGOT(AST) 37 U/L (5-40); SGPT(ALT) 26 U/L (5-65); SODIUM, SERUM 134 MMOL/L (135-148); TOTAL BILIRUBIN 0.8 MG/DL (0-1.2); TOTAL PROTEIN 5.6 G/DL (6.0-8.5)
[2016-08-23 07:46] LABS: BASOPHILS 1 %; BASOPHILS ABSOLUTE (CALC) 0.14 10/3/uL (0.0-0.16); LYMPHOCYTES 6 %; LYMPHOCYTES ABSOLUTE (CALC) 0.81 10/3/uL (0.67-4.30); MONOCYTES 2 %; MONOCYTES ABSOLUTE (CALC) 0.27 10/3/uL (0.21-1.20); NEUTROPHILS ABSOLUTE (CALC) 12.29 10/3/uL (2.02-8.40); PLATELET ESTIMATE ADQ (ADEQUATE); RBC MORPHOLOGY NORM (NORMAL); SEGMENTED NEUTROPHIL (0) 91 %; TOTAL NUCLEATED CELLS 100
[2016-08-23 18:09] LABS: C-REACTIVE PROTEIN 80.5 MG/L (<8.0)
[2016-08-23 18:14] LABS: PROCALCITONIN 0.58 ng/mL (<0.5)
[2016-08-23 18:16] LABS: ASCORBIC ACID (UR NOT ORDER) NEG (NEG); BILIRUBIN, URINE NEGATIVE (NEG); KETONE, URINE NEGATIVE (NEG); LEUKOCYTE ESTERASE(NOT OR NEG (NEG); WBC (NOT ORDERED) (RFLEX) 1 (0-5)
[2016-08-24 07:31] LABS: BUN (BLOOD UREA NITROGEN) 80 MG/DL (6-23); CALCIUM, SERUM 7.9 MG/DL (8.5-10.4); CHLORIDE, SERUM 102 MMOL/L (96-112); CO2 (CARBON DIOXIDE) 19 MMOL/L (24-34); CREATININE 1.78 MG/DL (0.70-1.30); GFR AFRICAN AMERICAN 40 ML/MIN (>=60); GFR NON AFRICAN AMERICAN 34 ML/MIN (>=60); GLUCOSE, SERUM 93 MG/DL (60-99); POTASSIUM, SERUM 4.2 MMOL/L (3.5-5.3); SODIUM, SERUM 133 MMOL/L (135-148)
[2016-08-24 07:32] LABS: BASOPHILS 0.2 %; BASOPHILS ABSOLUTE 0.02 10/3/uL (0.0-0.16); EOSINOPHILS 2.2 %; EOSINOPHILS ABSOLUTE 0.24 10/3/uL (0.0-0.53); HEMOGLOBIN 8.6 g/dL (13.6-17.8); IMMATURE GRANULOCYTES 0.3 %; IMMATURE GRANULOCYTES ABSOLUTE 0.03 10/3/uL (0.0-0.11); LYMPHOCYTES ABSOLUTE 1.17 10/3/uL (0.67-4.30); MEAN CORPUS HGB CONC 34.7 g/dL (32.0-36.0); MEAN CORPUSCULAR HEMOGLOB 30.3 pg (26.0-34.0); MEAN CORPUSCULAR VOLUME 87.3 fL (80-100); MEAN PLATELET VOLUME 9.4 fL (9.2-13.0); MONOCYTES 4.6 %; MONOCYTES ABSOLUTE 0.49 10/3/uL (0.21-1.20); NEUTROPHILS 81.7 %; NEUTROPHILS ABSOLUTE 8.73 10/3/uL (2.02-8.40); PLATELET COUNT 135 10/3/uL (150-400); RBC DISTRIBUTION WIDTH 16.8 % (12.0-16.0); RED CELL COUNT 2.84 10/6/uL (4.7-6.1); WHITE BLOOD CELLS 10.7 10/3/uL (4.5-10.5)
[2016-08-24 07:34] LABS: HEMATOCRIT 24.8 % (40.0-51.0); MANUAL DIFF NO %
[2016-08-24 07:41] LABS: INTERNATIONAL NORMAL RATI 2.1 UNITS (-); PROTIME (NOT ORD) 23.2 SEC (12.0-14.5)
[2016-08-24 08:51] LABS: PHOSPHORUS, SERUM 3.7 MG/DL (2.5-4.5)
[2016-08-24 11:18] LABS: PROCALCITONIN 1.04 ng/mL (<0.5)
[2016-08-24 15:47] LABS: HEMATOCRIT 23.2 % (40.0-51.0); HEMOGLOBIN 8.2 g/dL (13.6-17.8)
[2016-08-25 07:15] LABS: BASOPHILS 0.5 %; BASOPHILS ABSOLUTE 0.03 10/3/uL (0.0-0.16); EOSINOPHILS 4.9 %; EOSINOPHILS ABSOLUTE 0.31 10/3/uL (0.0-0.53); HEMATOCRIT 21.4 % (40.0-51.0); HEMOGLOBIN 7.3 g/dL (13.6-17.8); IMMATURE GRANULOCYTES 0.3 %; IMMATURE GRANULOCYTES ABSOLUTE 0.02 10/3/uL (0.0-0.11); LYMPHOCYTES 14.2 %; MEAN CORPUS HGB CONC 34.1 g/dL (32.0-36.0); MEAN CORPUSCULAR HEMOGLOB 30.5 pg (26.0-34.0); MEAN CORPUSCULAR VOLUME 89.5 fL (80-100); MEAN PLATELET VOLUME 9.2 fL (9.2-13.0); MONOCYTES ABSOLUTE 0.44 10/3/uL (0.21-1.20); NEUTROPHILS 73.1 %; NEUTROPHILS ABSOLUTE 4.63 10/3/uL (2.02-8.40); PLATELET COUNT 107 10/3/uL (150-400); RBC DISTRIBUTION WIDTH 17.1 % (12.0-16.0); RED CELL COUNT 2.39 10/6/uL (4.7-6.1)
[2016-08-25 07:25] LABS: MANUAL DIFF NO %; WHITE BLOOD CELLS 6.3 10/3/uL (4.5-10.5)
[2016-08-25 07:29] LABS: CALCIUM, SERUM 7.8 MG/DL (8.5-10.4); CHLORIDE, SERUM 107 MMOL/L (96-112); CO2 (CARBON DIOXIDE) 18 MMOL/L (24-34); CREATININE 1.62 MG/DL (0.70-1.30); GFR AFRICAN AMERICAN 45 ML/MIN (>=60); GFR NON AFRICAN AMERICAN 38 ML/MIN (>=60); GLUCOSE, SERUM 88 MG/DL (60-99); PHOSPHORUS, SERUM 3.4 MG/DL (2.5-4.5); POTASSIUM, SERUM 3.8 MMOL/L (3.5-5.3); SODIUM, SERUM 139 MMOL/L (135-148)
[2016-08-25 07:33] LABS: ALBUMIN 3.2 G/DL (3.5-5.0); BUN (BLOOD UREA NITROGEN) 84 MG/DL (6-23)
[2016-08-25 20:28] LABS: CALCIUM, SERUM 7.8 MG/DL (8.5-10.4); CHLORIDE, SERUM 108 MMOL/L (96-112); CO2 (CARBON DIOXIDE) 20 MMOL/L (24-34); CREATININE 1.59 MG/DL (0.70-1.30); GFR AFRICAN AMERICAN 46 ML/MIN (>=60); GFR NON AFRICAN AMERICAN 39 ML/MIN (>=60); POTASSIUM, SERUM 4.3 MMOL/L (3.5-5.3); SODIUM, SERUM 139 MMOL/L (135-148)
[2016-08-25 20:29] LABS: BUN (BLOOD UREA NITROGEN) 79 MG/DL (6-23); CK-MB 2.5 NG/ML; CPK 24 U/L (0-200); GLUCOSE, SERUM 109 MG/DL (60-99); TROPONIN I 0.09 NG/ML (<0.05)
[2016-08-26 07:02] LABS: MEAN CORPUS HGB CONC 34.1 g/dL (32.0-36.0); MEAN CORPUSCULAR HEMOGLOB 30.7 pg (26.0-34.0); MEAN CORPUSCULAR VOLUME 90.1 fL (80-100); MEAN PLATELET VOLUME 9.2 fL (9.2-13.0); RBC DISTRIBUTION WIDTH 17.1 % (12.0-16.0)
[2016-08-26 07:03] LABS: HEMOGLOBIN 9.9 g/dL (13.6-17.8); MANUAL DIFF YES %; PLATELET COUNT 145 10/3/uL (150-400); RED CELL COUNT 3.22 10/6/uL (4.7-6.1); WHITE BLOOD CELLS 9.2 10/3/uL (4.5-10.5)
[2016-08-26 07:16] LABS: BUN (BLOOD UREA NITROGEN) 80 MG/DL (6-23); CALCIUM, SERUM 7.9 MG/DL (8.5-10.4); CHLORIDE, SERUM 108 MMOL/L (96-112); CO2 (CARBON DIOXIDE) 19 MMOL/L (24-34); CREATININE 1.69 MG/DL (0.70-1.30); GFR AFRICAN AMERICAN 42 ML/MIN (>=60); GFR NON AFRICAN AMERICAN 36 ML/MIN (>=60); GLUCOSE, SERUM 97 MG/DL (60-99); POTASSIUM, SERUM 4.4 MMOL/L (3.5-5.3); SODIUM, SERUM 138 MMOL/L (135-148)
[2016-08-26 07:28] LABS: ANISOCYTOSIS 1+ (5-10/OIF) (0-5/OIF); BAND NEUTROPHILS 12 %; HYPOCHROMIA 1+ (3-10/OIF) (0-2/OIF); LYMPHOCYTES 7 %; LYMPHOCYTES ABSOLUTE (CALC) 0.64 10/3/uL (0.67-4.30); MICROCYTES 1+ (5-10/OIF) (0-5/OIF); MONOCYTES 5 %; MONOCYTES ABSOLUTE (CALC) 0.46 10/3/uL (0.21-1.20); PLATELET ESTIMATE SLT DEC (ADEQUATE); SEGMENTED NEUTROPHIL (0) 76 %; TOTAL NUCLEATED CELLS 100
[2016-08-26 09:07] LABS: TROPONIN I 0.09 NG/ML (<0.05)
[2016-08-26 09:58] LABS: INTERNATIONAL NORMAL RATI 1.8 UNITS (-); PARTIAL THROMBO TIME 42.6 SEC (22.5-37.2)
[2016-08-26 20:48] LABS: HEMATOCRIT 26.3 % (40.0-51.0); HEMOGLOBIN 9.3 g/dL (13.6-17.8)
[2016-08-27 05:27] LABS: BASOPHILS 0.5 %; BASOPHILS ABSOLUTE 0.05 10/3/uL (0.0-0.16); EOSINOPHILS ABSOLUTE 0.19 10/3/uL (0.0-0.53); HEMATOCRIT 27.7 % (40.0-51.0); HEMOGLOBIN 9.4 g/dL (13.6-17.8); IMMATURE GRANULOCYTES 0.3 %; IMMATURE GRANULOCYTES ABSOLUTE 0.03 10/3/uL (0.0-0.11); LYMPHOCYTES ABSOLUTE 1.96 10/3/uL (0.67-4.30); MEAN CORPUS HGB CONC 33.9 g/dL (32.0-36.0); MEAN CORPUSCULAR HEMOGLOB 30.8 pg (26.0-34.0); MEAN CORPUSCULAR VOLUME 90.8 fL (80-100); MEAN PLATELET VOLUME 9.6 fL (9.2-13.0); MONOCYTES 7.9 %; MONOCYTES ABSOLUTE 0.74 10/3/uL (0.21-1.20); NEUTROPHILS 68.3 %; NEUTROPHILS ABSOLUTE 6.35 10/3/uL (2.02-8.40); PLATELET COUNT 136 10/3/uL (150-400); RBC DISTRIBUTION WIDTH 17.5 % (12.0-16.0); RED CELL COUNT 3.05 10/6/uL (4.7-6.1); WHITE BLOOD CELLS 9.3 10/3/uL (4.5-10.5)
[2016-08-27 05:33] LABS: ALBUMIN 3.1 G/DL (3.5-5.0); CHLORIDE, SERUM 107 MMOL/L (96-112); CO2 (CARBON DIOXIDE) 20 MMOL/L (24-34); CREATININE 1.67 MG/DL (0.70-1.30); GFR AFRICAN AMERICAN 43 ML/MIN (>=60); GFR NON AFRICAN AMERICAN 37 ML/MIN (>=60); GLUCOSE, SERUM 88 MG/DL (60-99); PHOSPHORUS, SERUM 3.5 MG/DL (2.5-4.5); POTASSIUM, SERUM 4.7 MMOL/L (3.5-5.3); SODIUM, SERUM 138 MMOL/L (135-148)
[2016-08-27 05:38] LABS: MANUAL DIFF NO %
[2016-08-27 05:39] LABS: BUN (BLOOD UREA NITROGEN) 72 MG/DL (6-23)
[2016-08-28 04:50] LABS: BUN (BLOOD UREA NITROGEN) 72 MG/DL (6-23); CALCIUM, SERUM 7.9 MG/DL (8.5-10.4); CHLORIDE, SERUM 108 MMOL/L (96-112); CO2 (CARBON DIOXIDE) 20 MMOL/L (24-34); CREATININE 1.54 MG/DL (0.70-1.30); GFR AFRICAN AMERICAN 47 ML/MIN (>=60); GFR NON AFRICAN AMERICAN 41 ML/MIN (>=60); GLUCOSE, SERUM 87 MG/DL (60-99); POTASSIUM, SERUM 4.7 MMOL/L (3.5-5.3); SODIUM, SERUM 138 MMOL/L (135-148)
[2016-08-28 04:54] LABS: BASOPHILS 0.8 %; BASOPHILS ABSOLUTE 0.06 10/3/uL (0.0-0.16); EOSINOPHILS 5.2 %; EOSINOPHILS ABSOLUTE 0.39 10/3/uL (0.0-0.53); HEMOGLOBIN 8.7 g/dL (13.6-17.8); IMMATURE GRANULOCYTES 0.3 %; IMMATURE GRANULOCYTES ABSOLUTE 0.02 10/3/uL (0.0-0.11); LYMPHOCYTES 13.7 %; LYMPHOCYTES ABSOLUTE 1.03 10/3/uL (0.67-4.30); MEAN CORPUS HGB CONC 33.5 g/dL (32.0-36.0); MEAN CORPUSCULAR HEMOGLOB 31.1 pg (26.0-34.0); MEAN CORPUSCULAR VOLUME 92.9 fL (80-100); MEAN PLATELET VOLUME 9.7 fL (9.2-13.0); MONOCYTES 9.7 %; MONOCYTES ABSOLUTE 0.73 10/3/uL (0.21-1.20); NEUTROPHILS 70.3 %; NEUTROPHILS ABSOLUTE 5.27 10/3/uL (2.02-8.40); PLATELET COUNT 133 10/3/uL (150-400); RBC DISTRIBUTION WIDTH 17.6 % (12.0-16.0); WHITE BLOOD CELLS 7.5 10/3/uL (4.5-10.5)
[2016-08-28 05:01] LABS: MANUAL DIFF NO %
[2016-08-29 07:10] LABS: BASOPHILS 1.2 %; BASOPHILS ABSOLUTE 0.07 10/3/uL (0.0-0.16); EOSINOPHILS 8.5 %; HEMATOCRIT 27.1 % (40.0-51.0); HEMOGLOBIN 9.3 g/dL (13.6-17.8); IMMATURE GRANULOCYTES 0.5 %; IMMATURE GRANULOCYTES ABSOLUTE 0.03 10/3/uL (0.0-0.11); LYMPHOCYTES 16.8 %; LYMPHOCYTES ABSOLUTE 0.99 10/3/uL (0.67-4.30); MANUAL DIFF NO %; MEAN CORPUS HGB CONC 34.3 g/dL (32.0-36.0); MEAN CORPUSCULAR HEMOGLOB 31.6 pg (26.0-34.0); MEAN CORPUSCULAR VOLUME 92.2 fL (80-100); MEAN PLATELET VOLUME 9.2 fL (9.2-13.0); MONOCYTES 7.6 %; MONOCYTES ABSOLUTE 0.45 10/3/uL (0.21-1.20); NEUTROPHILS 65.4 %; NEUTROPHILS ABSOLUTE 3.87 10/3/uL (2.02-8.40); PLATELET COUNT 129 10/3/uL (150-400); RBC DISTRIBUTION WIDTH 17.5 % (12.0-16.0); RED CELL COUNT 2.94 10/6/uL (4.7-6.1); WHITE BLOOD CELLS 5.9 10/3/uL (4.5-10.5)
[2016-08-29 07:14] LABS: INTERNATIONAL NORMAL RATI 1.7 UNITS (-); PROTIME (NOT ORD) 19.8 SEC (12.0-14.5)
[2016-08-29 07:19] LABS: BUN (BLOOD UREA NITROGEN) 70 MG/DL (6-23); CALCIUM, SERUM 7.8 MG/DL (8.5-10.4); CHLORIDE, SERUM 109 MMOL/L (96-112); CO2 (CARBON DIOXIDE) 18 MMOL/L (24-34); CREATININE 1.29 MG/DL (0.70-1.30); GFR AFRICAN AMERICAN 59 ML/MIN (>=60); GFR NON AFRICAN AMERICAN 51 ML/MIN (>=60); GLUCOSE, SERUM 97 MG/DL (60-99); POTASSIUM, SERUM 4.6 MMOL/L (3.5-5.3); SODIUM, SERUM 141 MMOL/L (135-148)
[2016-08-30 04:19] LABS: BASOPHILS 0.8 %; BASOPHILS ABSOLUTE 0.05 10/3/uL (0.0-0.16); EOSINOPHILS 3.1 %; HEMATOCRIT 28.6 % (40.0-51.0); HEMOGLOBIN 9.8 g/dL (13.6-17.8); IMMATURE GRANULOCYTES 0.3 %; IMMATURE GRANULOCYTES ABSOLUTE 0.02 10/3/uL (0.0-0.11); LYMPHOCYTES 12.2 %; LYMPHOCYTES ABSOLUTE 0.79 10/3/uL (0.67-4.30); MEAN CORPUS HGB CONC 34.3 g/dL (32.0-36.0); MEAN CORPUSCULAR HEMOGLOB 31.7 pg (26.0-34.0); MEAN CORPUSCULAR VOLUME 92.6 fL (80-100); MEAN PLATELET VOLUME 9.8 fL (9.2-13.0); MONOCYTES 6.2 %; NEUTROPHILS 77.4 %; NEUTROPHILS ABSOLUTE 5.01 10/3/uL (2.02-8.40); PLATELET COUNT 166 10/3/uL (150-400); RBC DISTRIBUTION WIDTH 17.4 % (12.0-16.0); RED CELL COUNT 3.09 10/6/uL (4.7-6.1); WHITE BLOOD CELLS 6.5 10/3/uL (4.5-10.5)
[2016-08-30 04:22] LABS: MANUAL DIFF NO %
[2016-08-30 04:37] LABS: BUN (BLOOD UREA NITROGEN) 68 MG/DL (6-23); CALCIUM, SERUM 7.7 MG/DL (8.5-10.4); CHLORIDE, SERUM 109 MMOL/L (96-112); CO2 (CARBON DIOXIDE) 18 MMOL/L (24-34); CREATININE 1.54 MG/DL (0.70-1.30); GFR AFRICAN AMERICAN 47 ML/MIN (>=60); GFR NON AFRICAN AMERICAN 41 ML/MIN (>=60); GLUCOSE, SERUM 107 MG/DL (60-99); POTASSIUM, SERUM 5.2 MMOL/L (3.5-5.3); SODIUM, SERUM 137 MMOL/L (135-148)
[2016-08-30 04:40] LABS: DIGOXIN 4.5 NG/ML (0.8-2.0)
[2016-08-30 13:21] LABS: ALBUMIN 2.9 G/DL (3.5-5.0)
[2016-08-30 14:02] LABS: HEMATOCRIT 30.5 % (40.0-51.0); HEMOGLOBIN 10.3 g/dL (13.6-17.8); MANUAL DIFF YES %; MEAN CORPUS HGB CONC 33.8 g/dL (32.0-36.0); MEAN CORPUSCULAR HEMOGLOB 30.9 pg (26.0-34.0); MEAN CORPUSCULAR VOLUME 91.6 fL (80-100); MEAN PLATELET VOLUME 9.5 fL (9.2-13.0); PLATELET COUNT 183 10/3/uL (150-400); RBC DISTRIBUTION WIDTH 17.2 % (12.0-16.0); RED CELL COUNT 3.33 10/6/uL (4.7-6.1); WHITE BLOOD CELLS 6.7 10/3/uL (4.5-10.5)
[2016-08-30 14:15] LABS: INTERNATIONAL NORMAL RATI 1.8 UNITS (-); PARTIAL THROMBO TIME 41.4 SEC (22.5-37.2); PROTIME (NOT ORD) 20.8 SEC (12.0-14.5)
[2016-08-30 14:29] LABS: ANISOCYTOSIS 1+ (5-10/OIF) (0-5/OIF); BAND NEUTROPHILS 2 %; EOSINOPHILS 2 %; EOSINOPHILS ABSOLUTE (CALC) 0.13 10/3/uL (0.0-0.53); LYMPHOCYTES 12 %; MONOCYTES 6 %; NEUTROPHILS ABSOLUTE (CALC) 5.36 10/3/uL (2.02-8.40); PLATELET ESTIMATE ADQ (ADEQUATE); SEGMENTED NEUTROPHIL (0) 78 %; TOTAL NUCLEATED CELLS 100
[2016-08-30 22:06] LABS: INFLUENZA A SCREEN NEGATIVE (NEGATIVE); INFLUENZA B SCREEN NEGATIVE (NEGATIVE)
[2016-08-31 07:03] LABS: BASOPHILS 0.7 %; BASOPHILS ABSOLUTE 0.05 10/3/uL (0.0-0.16); EOSINOPHILS 6.6 %; EOSINOPHILS ABSOLUTE 0.48 10/3/uL (0.0-0.53); HEMATOCRIT 29.5 % (40.0-51.0); HEMOGLOBIN 9.8 g/dL (13.6-17.8); IMMATURE GRANULOCYTES 0.1 %; IMMATURE GRANULOCYTES ABSOLUTE 0.01 10/3/uL (0.0-0.11); LYMPHOCYTES 16.6 %; MEAN CORPUS HGB CONC 33.2 g/dL (32.0-36.0); MEAN CORPUSCULAR HEMOGLOB 30.3 pg (26.0-34.0); MEAN CORPUSCULAR VOLUME 91.3 fL (80-100); MEAN PLATELET VOLUME 9.1 fL (9.2-13.0); MONOCYTES 7.5 %; MONOCYTES ABSOLUTE 0.54 10/3/uL (0.21-1.20); NEUTROPHILS 68.5 %; NEUTROPHILS ABSOLUTE 4.96 10/3/uL (2.02-8.40); PLATELET COUNT 182 10/3/uL (150-400); RBC DISTRIBUTION WIDTH 17.2 % (12.0-16.0); RED CELL COUNT 3.23 10/6/uL (4.7-6.1); WHITE BLOOD CELLS 7.2 10/3/uL (4.5-10.5)
[2016-08-31 07:05] LABS: MANUAL DIFF NO %
[2016-08-31 07:13] LABS: BUN (BLOOD UREA NITROGEN) 70 MG/DL (6-23); CHLORIDE, SERUM 107 MMOL/L (96-112); CO2 (CARBON DIOXIDE) 17 MMOL/L (24-34); CREATININE 1.65 MG/DL (0.70-1.30); GFR AFRICAN AMERICAN 44 ML/MIN (>=60); GFR NON AFRICAN AMERICAN 38 ML/MIN (>=60); GLUCOSE, SERUM 95 MG/DL (60-99); POTASSIUM, SERUM 4.9 MMOL/L (3.5-5.3); SODIUM, SERUM 135 MMOL/L (135-148)
[2016-08-31 15:48] LABS: ALLENS TEST Pos; BE (BASE EXCESS) -8.5 MEQ/L (0 +/- 2.5); CARBOXYHEMOGLOBIN 0.1 % (0-3); HCO3 (ACTUAL BICARBONATE) 15.6 MEQ/L (23-27); HEMOBLOGIN CONTENT 10.3 G/DL (14-18); INSTRUMENT SERIAL # 35151; METHEMOGLOBIN 0.7 % (0-3); O2 CONTENT 13.9 VOL% (18-24); PCO2 (CO2 TENSION) 28 MMHG (35-45); PO2 (O2 TENSION) 87 MMHG (79-93); SAMPLE Arterial; pH 7.37 (7.37-7.43)
[2016-09-01 05:16] LABS: HEMATOCRIT 26.7 % (40.0-51.0); HEMOGLOBIN 9.2 g/dL (13.6-17.8); MEAN CORPUS HGB CONC 34.5 g/dL (32.0-36.0); MEAN CORPUSCULAR HEMOGLOB 31.7 pg (26.0-34.0); MEAN CORPUSCULAR VOLUME 92.1 fL (80-100); MEAN PLATELET VOLUME 9.3 fL (9.2-13.0); PLATELET COUNT 177 10/3/uL (150-400); RBC DISTRIBUTION WIDTH 17.2 % (12.0-16.0); WHITE BLOOD CELLS 7.1 10/3/uL (4.5-10.5)
[2016-09-01 05:28] LABS: CHLORIDE, SERUM 106 MMOL/L (96-112); CO2 (CARBON DIOXIDE) 18 MMOL/L (24-34); CREATININE 1.66 MG/DL (0.70-1.30); GFR AFRICAN AMERICAN 43 ML/MIN (>=60); GFR NON AFRICAN AMERICAN 37 ML/MIN (>=60); GLUCOSE, SERUM 85 MG/DL (60-99); POTASSIUM, SERUM 4.8 MMOL/L (3.5-5.3); SODIUM, SERUM 136 MMOL/L (135-148)
[2016-09-01 05:29] LABS: MANUAL DIFF YES %
[2016-09-01 05:30] LABS: BUN (BLOOD UREA NITROGEN) 74 MG/DL (6-23)
[2016-09-01 06:51] LABS: ANISOCYTOSIS 1+ (5-10/OIF) (0-5/OIF); BAND NEUTROPHILS 6 %; BASOPHILS 1 %; BASOPHILS ABSOLUTE (CALC) 0.07 10/3/uL (0.0-0.16); EOSINOPHILS 5 %; EOSINOPHILS ABSOLUTE (CALC) 0.36 10/3/uL (0.0-0.53); LYMPHOCYTES 16 %; LYMPHOCYTES ABSOLUTE (CALC) 1.14 10/3/uL (0.67-4.30); MONOCYTES 6 %; MONOCYTES ABSOLUTE (CALC) 0.43 10/3/uL (0.21-1.20); NEUTROPHILS ABSOLUTE (CALC) 5.11 10/3/uL (2.02-8.40); PLATELET ESTIMATE ADQ (ADEQUATE); SEGMENTED NEUTROPHIL (0) 66 %; TOTAL NUCLEATED CELLS 100
[2016-09-01 06:52] LABS: POLYCHROMASIA 1+ (2-5/OIF) (0-1/OIF); TOXIC GRANULATION SLT; VACUOLATED NEUTROPHILES OCC
[2016-09-02 06:14] LABS: HEMOGLOBIN 7.7 g/dL (13.6-17.8); MEAN CORPUSCULAR HEMOGLOB 30.2 pg (26.0-34.0); MEAN CORPUSCULAR VOLUME 91.4 fL (80-100); MEAN PLATELET VOLUME 8.9 fL (9.2-13.0); PLATELET COUNT 176 10/3/uL (150-400); RBC DISTRIBUTION WIDTH 17.8 % (12.0-16.0); RED CELL COUNT 2.55 10/6/uL (4.7-6.1); WHITE BLOOD CELLS 6.1 10/3/uL (4.5-10.5)
[2016-09-02 06:15] LABS: HEMATOCRIT 23.3 % (40.0-51.0); MANUAL DIFF YES %
[2016-09-02 06:30] LABS: CALCIUM, SERUM 7.9 MG/DL (8.5-10.4); CHLORIDE, SERUM 106 MMOL/L (96-112); CO2 (CARBON DIOXIDE) 19 MMOL/L (24-34); CREATININE 1.82 MG/DL (0.70-1.30); GFR AFRICAN AMERICAN 39 ML/MIN (>=60); GFR NON AFRICAN AMERICAN 33 ML/MIN (>=60); GLUCOSE, SERUM 90 MG/DL (60-99); POTASSIUM, SERUM 4.8 MMOL/L (3.5-5.3); SODIUM, SERUM 136 MMOL/L (135-148)
[2016-09-02 06:32] LABS: BUN (BLOOD UREA NITROGEN) 81 MG/DL (6-23)
[2016-09-02 06:51] LABS: ANISOCYTOSIS 1+ (5-10/OIF) (0-5/OIF); BAND NEUTROPHILS 1 %; EOSINOPHILS 2 %; EOSINOPHILS ABSOLUTE (CALC) 0.12 10/3/uL (0.0-0.53); LYMPHOCYTES 16 %; LYMPHOCYTES ABSOLUTE (CALC) 0.98 10/3/uL (0.67-4.30); MONOCYTES 1 %; MONOCYTES ABSOLUTE (CALC) 0.06 10/3/uL (0.21-1.20); NEUTROPHILS ABSOLUTE (CALC) 4.94 10/3/uL (2.02-8.40); PLATELET ESTIMATE ADQ (ADEQUATE); POLYCHROMASIA 1+ (2-5/OIF) (0-1/OIF); SEGMENTED NEUTROPHIL (0) 80 %; TOTAL NUCLEATED CELLS 100
[2016-09-02 14:01] LABS: HEMATOCRIT 22.3 % (40.0-51.0); HEMOGLOBIN 7.3 g/dL (13.6-17.8)
[2016-09-03 05:24] LABS: BASOPHILS 1.2 %; BASOPHILS ABSOLUTE 0.07 10/3/uL (0.0-0.16); EOSINOPHILS 5.5 %; EOSINOPHILS ABSOLUTE 0.31 10/3/uL (0.0-0.53); HEMOGLOBIN 8.4 g/dL (13.6-17.8); IMMATURE GRANULOCYTES 0.2 %; IMMATURE GRANULOCYTES ABSOLUTE 0.01 10/3/uL (0.0-0.11); LYMPHOCYTES ABSOLUTE 1.18 10/3/uL (0.67-4.30); MEAN CORPUS HGB CONC 34.1 g/dL (32.0-36.0); MEAN CORPUSCULAR HEMOGLOB 31.5 pg (26.0-34.0); MEAN CORPUSCULAR VOLUME 92.1 fL (80-100); MEAN PLATELET VOLUME 9.5 fL (9.2-13.0); MONOCYTES 5.5 %; MONOCYTES ABSOLUTE 0.31 10/3/uL (0.21-1.20); NEUTROPHILS 66.6 %; NEUTROPHILS ABSOLUTE 3.73 10/3/uL (2.02-8.40); PLATELET COUNT 176 10/3/uL (150-400); RBC DISTRIBUTION WIDTH 18.1 % (12.0-16.0); RED CELL COUNT 2.67 10/6/uL (4.7-6.1); WHITE BLOOD CELLS 5.6 10/3/uL (4.5-10.5)
[2016-09-03 05:28] LABS: HEMATOCRIT 24.6 % (40.0-51.0); MANUAL DIFF NO %
[2016-09-03 05:51] LABS: BUN (BLOOD UREA NITROGEN) 81 MG/DL (6-23); CALCIUM, SERUM 7.6 MG/DL (8.5-10.4); CHLORIDE, SERUM 109 MMOL/L (96-112); CO2 (CARBON DIOXIDE) 18 MMOL/L (24-34); CREATININE 1.72 MG/DL (0.70-1.30); GFR AFRICAN AMERICAN 41 ML/MIN (>=60); GFR NON AFRICAN AMERICAN 36 ML/MIN (>=60); GLUCOSE, SERUM 97 MG/DL (60-99); POTASSIUM, SERUM 4.3 MMOL/L (3.5-5.3); SODIUM, SERUM 136 MMOL/L (135-148)
[2016-09-04 05:40] LABS: HEMATOCRIT 24.5 % (40.0-51.0); HEMOGLOBIN 8.3 g/dL (13.6-17.8); MEAN CORPUS HGB CONC 33.9 g/dL (32.0-36.0); MEAN CORPUSCULAR HEMOGLOB 31.2 pg (26.0-34.0); MEAN CORPUSCULAR VOLUME 92.1 fL (80-100); MEAN PLATELET VOLUME 9.4 fL (9.2-13.0); PLATELET COUNT 189 10/3/uL (150-400); RBC DISTRIBUTION WIDTH 18.1 % (12.0-16.0); RED CELL COUNT 2.66 10/6/uL (4.7-6.1); WHITE BLOOD CELLS 5.4 10/3/uL (4.5-10.5)
[2016-09-04 05:46] LABS: INTERNATIONAL NORMAL RATI 1.7 UNITS (-)
[2016-09-04 05:47] LABS: MANUAL DIFF YES %
[2016-09-04 05:53] LABS: CALCIUM, SERUM 7.7 MG/DL (8.5-10.4); CHLORIDE, SERUM 109 MMOL/L (96-112); CO2 (CARBON DIOXIDE) 17 MMOL/L (24-34); CREATININE 1.63 MG/DL (0.70-1.30); GFR AFRICAN AMERICAN 44 ML/MIN (>=60); GFR NON AFRICAN AMERICAN 38 ML/MIN (>=60); GLUCOSE, SERUM 93 MG/DL (60-99); POTASSIUM, SERUM 3.6 MMOL/L (3.5-5.3); SODIUM, SERUM 139 MMOL/L (135-148)
[2016-09-04 05:54] LABS: BUN (BLOOD UREA NITROGEN) 77 MG/DL (6-23)
[2016-09-04 06:05] LABS: ANISOCYTOSIS 1+ (5-10/OIF) (0-5/OIF); BAND NEUTROPHILS 2 %; EOSINOPHILS 1 %; EOSINOPHILS ABSOLUTE (CALC) 0.05 10/3/uL (0.0-0.53); LYMPHOCYTES 12 %; LYMPHOCYTES ABSOLUTE (CALC) 0.65 10/3/uL (0.67-4.30); MONOCYTES 1 %; MONOCYTES ABSOLUTE (CALC) 0.05 10/3/uL (0.21-1.20); NEUTROPHILS ABSOLUTE (CALC) 4.64 10/3/uL (2.02-8.40); SEGMENTED NEUTROPHIL (0) 84 %; TEARDROP SHAPED RBCS FEW (3-10/OIF); TOTAL NUCLEATED CELLS 100
[2016-09-04 06:06] LABS: OVALOCYTES 1+ (3-10/OIF) (0-2/OIF)
[2016-09-05 05:13] LABS: HEMATOCRIT 26.1 % (40.0-51.0); HEMOGLOBIN 8.8 g/dL (13.6-17.8); MEAN CORPUS HGB CONC 33.7 g/dL (32.0-36.0); MEAN CORPUSCULAR HEMOGLOB 31.7 pg (26.0-34.0); MEAN CORPUSCULAR VOLUME 93.9 fL (80-100); MEAN PLATELET VOLUME 9.1 fL (9.2-13.0); PLATELET COUNT 230 10/3/uL (150-400); RBC DISTRIBUTION WIDTH 19.1 % (12.0-16.0); RED CELL COUNT 2.78 10/6/uL (4.7-6.1)
[2016-09-05 05:25] LABS: ALBUMIN 2.7 G/DL (3.5-5.0); BUN (BLOOD UREA NITROGEN) 77 MG/DL (6-23); CALCIUM, SERUM 7.6 MG/DL (8.5-10.4); CHLORIDE, SERUM 112 MMOL/L (96-112); CO2 (CARBON DIOXIDE) 18 MMOL/L (24-34); GFR AFRICAN AMERICAN 37 ML/MIN (>=60); GFR NON AFRICAN AMERICAN 32 ML/MIN (>=60); GLOBULIN 2.7 G/DL (2.5-4.1); GLUCOSE, SERUM 107 MG/DL (60-99); PHOSPHORUS, SERUM 3.1 MG/DL (2.5-4.5); POTASSIUM, SERUM 3.7 MMOL/L (3.5-5.3); SGOT(AST) 48 U/L (5-40); SGPT(ALT) 30 U/L (5-65); SODIUM, SERUM 142 MMOL/L (135-148); TOTAL BILIRUBIN 0.6 MG/DL (0-1.2); TOTAL PROTEIN 5.4 G/DL (6.0-8.5); TRIGLYCERIDE 101 MG/DL (< 150)
[2016-09-05 05:29] LABS: ALKALINE PHOSPHATASE 211 U/L (45-117)
[2016-09-05 05:32] LABS: MANUAL DIFF YES %; WHITE BLOOD CELLS 8.8 10/3/uL (4.5-10.5)
[2016-09-05 05:38] LABS: PREALBUMIN 9.9 MG/DL (17.0-43.0)
[2016-09-05 06:12] LABS: ANISOCYTOSIS 1+ (5-10/OIF) (0-5/OIF); BASOPHILS 1 %; BASOPHILS ABSOLUTE (CALC) 0.09 10/3/uL (0.0-0.16); EOSINOPHILS 1 %; EOSINOPHILS ABSOLUTE (CALC) 0.09 10/3/uL (0.0-0.53); LYMPHOCYTES 3 %; LYMPHOCYTES ABSOLUTE (CALC) 0.26 10/3/uL (0.67-4.30); MONOCYTES 3 %; MONOCYTES ABSOLUTE (CALC) 0.26 10/3/uL (0.21-1.20); PLATELET ESTIMATE ADQ (ADEQUATE); SEGMENTED NEUTROPHIL (0) 92 %; TOTAL NUCLEATED CELLS 100
[2016-09-05 14:47] LABS: ALBUMIN 2.5 G/DL (3.5-5.0); BUN (BLOOD UREA NITROGEN) 75 MG/DL (6-23); CALCIUM, SERUM 7.5 MG/DL (8.5-10.4); CHLORIDE, SERUM 110 MMOL/L (96-112); CO2 (CARBON DIOXIDE) 17 MMOL/L (24-34); CREATININE 1.96 MG/DL (0.70-1.30); GFR AFRICAN AMERICAN 35 ML/MIN (>=60); GFR NON AFRICAN AMERICAN 31 ML/MIN (>=60); GLOBULIN 2.5 G/DL (2.5-4.1); PHOSPHORUS, SERUM 2.8 MG/DL (2.5-4.5); POTASSIUM, SERUM 3.9 MMOL/L (3.5-5.3); SGOT(AST) 38 U/L (5-40); SGPT(ALT) 26 U/L (5-65); SODIUM, SERUM 141 MMOL/L (135-148); TOTAL BILIRUBIN 0.8 MG/DL (0-1.2); TRIGLYCERIDE 93 MG/DL (< 150)
[2016-09-05 14:48] LABS: ALKALINE PHOSPHATASE 191 U/L (45-117); GLUCOSE, SERUM 135 MG/DL (60-99)
[2016-09-05 15:18] LABS: PROCALCITONIN 0.28 ng/mL (<0.5)
[2016-09-05 16:07] LABS: C-REACTIVE PROTEIN 18.2 MG/L (<8.0)
[2016-09-05 19:02] LABS: PREALBUMIN 9.2 MG/DL (17.0-43.0)
[2016-09-06 04:49] LABS: BASOPHILS 0.7 %; BASOPHILS ABSOLUTE 0.05 10/3/uL (0.0-0.16); EOSINOPHILS 3.7 %; EOSINOPHILS ABSOLUTE 0.25 10/3/uL (0.0-0.53); HEMOGLOBIN 7.5 g/dL (13.6-17.8); IMMATURE GRANULOCYTES 0.1 %; IMMATURE GRANULOCYTES ABSOLUTE 0.01 10/3/uL (0.0-0.11); LYMPHOCYTES 17.1 %; LYMPHOCYTES ABSOLUTE 1.15 10/3/uL (0.67-4.30); MEAN CORPUS HGB CONC 33.5 g/dL (32.0-36.0); MEAN CORPUSCULAR HEMOGLOB 31.3 pg (26.0-34.0); MEAN CORPUSCULAR VOLUME 93.3 fL (80-100); MEAN PLATELET VOLUME 9.2 fL (9.2-13.0); NEUTROPHILS 75.4 %; NEUTROPHILS ABSOLUTE 5.07 10/3/uL (2.02-8.40); PLATELET COUNT 206 10/3/uL (150-400); RBC DISTRIBUTION WIDTH 19.5 % (12.0-16.0); WHITE BLOOD CELLS 6.7 10/3/uL (4.5-10.5)
[2016-09-06 04:54] LABS: HEMATOCRIT 22.4 % (40.0-51.0); MANUAL DIFF NO %
[2016-09-06 05:01] LABS: CALCIUM, SERUM 7.4 MG/DL (8.5-10.4); CHLORIDE, SERUM 112 MMOL/L (96-112); CO2 (CARBON DIOXIDE) 16 MMOL/L (24-34); GFR AFRICAN AMERICAN 42 ML/MIN (>=60); GFR NON AFRICAN AMERICAN 36 ML/MIN (>=60); GLUCOSE, SERUM 111 MG/DL (60-99); PHOSPHORUS, SERUM 2.3 MG/DL (2.5-4.5); POTASSIUM, SERUM 3.7 MMOL/L (3.5-5.3); SODIUM, SERUM 141 MMOL/L (135-148)
[2016-09-06 05:02] LABS: BUN (BLOOD UREA NITROGEN) 71 MG/DL (6-23)
[2016-09-06 14:35] LABS: HEMOGLOBIN 8.6 g/dL (13.6-17.8)
[2016-09-06 14:39] LABS: HEMATOCRIT 25.6 % (40.0-51.0)
[2016-09-07 04:35] LABS: BASOPHILS 0.6 %; BASOPHILS ABSOLUTE 0.04 10/3/uL (0.0-0.16); EOSINOPHILS 4.9 %; EOSINOPHILS ABSOLUTE 0.33 10/3/uL (0.0-0.53); HEMATOCRIT 24.6 % (40.0-51.0); HEMOGLOBIN 8.1 g/dL (13.6-17.8); IMMATURE GRANULOCYTES 0.3 %; IMMATURE GRANULOCYTES ABSOLUTE 0.02 10/3/uL (0.0-0.11); LYMPHOCYTES 16.8 %; LYMPHOCYTES ABSOLUTE 1.14 10/3/uL (0.67-4.30); MEAN CORPUS HGB CONC 32.9 g/dL (32.0-36.0); MEAN CORPUSCULAR HEMOGLOB 30.7 pg (26.0-34.0); MEAN CORPUSCULAR VOLUME 93.2 fL (80-100); MEAN PLATELET VOLUME 9.7 fL (9.2-13.0); MONOCYTES 6.2 %; MONOCYTES ABSOLUTE 0.42 10/3/uL (0.21-1.20); NEUTROPHILS 71.2 %; NEUTROPHILS ABSOLUTE 4.85 10/3/uL (2.02-8.40); PLATELET COUNT 233 10/3/uL (150-400); RBC DISTRIBUTION WIDTH 19.4 % (12.0-16.0); RED CELL COUNT 2.64 10/6/uL (4.7-6.1); WHITE BLOOD CELLS 6.8 10/3/uL (4.5-10.5)
[2016-09-07 04:36] LABS: MANUAL DIFF NO %
[2016-09-07 04:44] LABS: INTERNATIONAL NORMAL RATI 1.6 UNITS (-); PROTIME (NOT ORD) 19.3 SEC (12.0-14.5)
[2016-09-07 04:55] LABS: CALCIUM, SERUM 7.5 MG/DL (8.5-10.4); CHLORIDE, SERUM 110 MMOL/L (96-112); CO2 (CARBON DIOXIDE) 16 MMOL/L (24-34); CREATININE 1.45 MG/DL (0.70-1.30); GFR AFRICAN AMERICAN 51 ML/MIN (>=60); GFR NON AFRICAN AMERICAN 44 ML/MIN (>=60); GLUCOSE, SERUM 106 MG/DL (60-99); PHOSPHORUS, SERUM 2.7 MG/DL (2.5-4.5); SODIUM, SERUM 139 MMOL/L (135-148)
[2016-09-07 04:56] LABS: BUN (BLOOD UREA NITROGEN) 77 MG/DL (6-23); POTASSIUM, SERUM 4.5 MMOL/L (3.5-5.3)
[2016-09-08 04:24] LABS: BASOPHILS 1.4 %; BASOPHILS ABSOLUTE 0.08 10/3/uL (0.0-0.16); EOSINOPHILS 7.4 %; EOSINOPHILS ABSOLUTE 0.43 10/3/uL (0.0-0.53); HEMATOCRIT 24.3 % (40.0-51.0); HEMOGLOBIN 8.1 g/dL (13.6-17.8); IMMATURE GRANULOCYTES 0.7 %; IMMATURE GRANULOCYTES ABSOLUTE 0.04 10/3/uL (0.0-0.11); LYMPHOCYTES ABSOLUTE 0.88 10/3/uL (0.67-4.30); MEAN CORPUS HGB CONC 33.3 g/dL (32.0-36.0); MEAN PLATELET VOLUME 9.3 fL (9.2-13.0); MONOCYTES 7.5 %; MONOCYTES ABSOLUTE 0.44 10/3/uL (0.21-1.20); NEUTROPHILS ABSOLUTE 3.98 10/3/uL (2.02-8.40); PLATELET COUNT 205 10/3/uL (150-400); RBC DISTRIBUTION WIDTH 19.4 % (12.0-16.0); RED CELL COUNT 2.53 10/6/uL (4.7-6.1); WHITE BLOOD CELLS 5.9 10/3/uL (4.5-10.5)
[2016-09-08 04:25] LABS: MANUAL DIFF NO %
[2016-09-08 04:40] LABS: BUN (BLOOD UREA NITROGEN) 78 MG/DL (6-23); CALCIUM, SERUM 7.6 MG/DL (8.5-10.4); CHLORIDE, SERUM 109 MMOL/L (96-112); CREATININE 1.34 MG/DL (0.70-1.30); GFR AFRICAN AMERICAN 56 ML/MIN (>=60); GFR NON AFRICAN AMERICAN 48 ML/MIN (>=60); GLUCOSE, SERUM 119 MG/DL (60-99); PHOSPHORUS, SERUM 2.7 MG/DL (2.5-4.5); POTASSIUM, SERUM 4.4 MMOL/L (3.5-5.3); SODIUM, SERUM 135 MMOL/L (135-148)
[2016-09-08 04:49] LABS: CO2 (CARBON DIOXIDE) 14 MMOL/L (24-34)
[2016-09-08 10:30] LABS: INTERNATIONAL NORMAL RATI 1.6 UNITS (-); PARTIAL THROMBO TIME 37.9 SEC (22.5-37.2); PROTIME (NOT ORD) 18.8 SEC (12.0-14.5)
[2016-09-08 10:32] LABS: ALBUMIN 2.4 G/DL (3.5-5.0); TOTAL PROTEIN 5.2 G/DL (6.0-8.5)
[2016-09-08 13:20] LABS: GLUCOSE BODY FL (NOT ORD) 116 MG/DL; LDH BODY FLUID (NOT ORD) 45 U/L; PROTEIN BODY FLUID 1.3 G/DL
[2016-09-09 04:58] LABS: BASOPHILS 1.5 %; BASOPHILS ABSOLUTE 0.07 10/3/uL (0.0-0.16); EOSINOPHILS 6.6 %; HEMATOCRIT 22.4 % (40.0-51.0); HEMOGLOBIN 7.5 g/dL (13.6-17.8); IMMATURE GRANULOCYTES 1.1 %; IMMATURE GRANULOCYTES ABSOLUTE 0.05 10/3/uL (0.0-0.11); LYMPHOCYTES 20.4 %; LYMPHOCYTES ABSOLUTE 0.92 10/3/uL (0.67-4.30); MEAN CORPUS HGB CONC 33.5 g/dL (32.0-36.0); MEAN CORPUSCULAR HEMOGLOB 31.9 pg (26.0-34.0); MEAN CORPUSCULAR VOLUME 95.3 fL (80-100); MEAN PLATELET VOLUME 9.2 fL (9.2-13.0); MONOCYTES 8.6 %; MONOCYTES ABSOLUTE 0.39 10/3/uL (0.21-1.20); NEUTROPHILS 61.8 %; NEUTROPHILS ABSOLUTE 2.79 10/3/uL (2.02-8.40); PLATELET COUNT 177 10/3/uL (150-400); RBC DISTRIBUTION WIDTH 19.3 % (12.0-16.0); RED CELL COUNT 2.35 10/6/uL (4.7-6.1); WHITE BLOOD CELLS 4.5 10/3/uL (4.5-10.5)
[2016-09-09 05:05] LABS: MANUAL DIFF NO %
[2016-09-09 05:12] LABS: BUN (BLOOD UREA NITROGEN) 77 MG/DL (6-23); CALCIUM, SERUM 7.8 MG/DL (8.5-10.4); CHLORIDE, SERUM 112 MMOL/L (96-112); CREATININE 1.25 MG/DL (0.70-1.30); GFR AFRICAN AMERICAN 61 ML/MIN (>=60); GFR NON AFRICAN AMERICAN 53 ML/MIN (>=60); GLUCOSE, SERUM 105 MG/DL (60-99); PHOSPHORUS, SERUM 2.3 MG/DL (2.5-4.5); POTASSIUM, SERUM 4.7 MMOL/L (3.5-5.3); SODIUM, SERUM 137 MMOL/L (135-148)
[2016-09-09 05:13] LABS: CO2 (CARBON DIOXIDE) 13 MMOL/L (24-34)
[2016-09-09 19:41] LABS: BD FL SOURCE (NOT ORD) PERITONEAL
[2016-09-10 08:14] LABS: BASOPHILS ABSOLUTE 0.05 10/3/uL (0.0-0.16); EOSINOPHILS 6.4 %; EOSINOPHILS ABSOLUTE 0.33 10/3/uL (0.0-0.53); HEMATOCRIT 24.1 % (40.0-51.0); IMMATURE GRANULOCYTES 2.1 %; IMMATURE GRANULOCYTES ABSOLUTE 0.11 10/3/uL (0.0-0.11); LYMPHOCYTES 19.3 %; LYMPHOCYTES ABSOLUTE 0.99 10/3/uL (0.67-4.30); MEAN CORPUS HGB CONC 33.2 g/dL (32.0-36.0); MEAN CORPUSCULAR HEMOGLOB 31.4 pg (26.0-34.0); MEAN CORPUSCULAR VOLUME 94.5 fL (80-100); MEAN PLATELET VOLUME 9.4 fL (9.2-13.0); MONOCYTES 9.6 %; MONOCYTES ABSOLUTE 0.49 10/3/uL (0.21-1.20); NEUTROPHILS 61.6 %; NEUTROPHILS ABSOLUTE 3.16 10/3/uL (2.02-8.40); PLATELET COUNT 191 10/3/uL (150-400); RBC DISTRIBUTION WIDTH 18.7 % (12.0-16.0); RED CELL COUNT 2.55 10/6/uL (4.7-6.1); WHITE BLOOD CELLS 5.1 10/3/uL (4.5-10.5)
[2016-09-10 08:20] LABS: MANUAL DIFF NO %
[2016-09-10 08:26] LABS: CALCIUM, SERUM 7.6 MG/DL (8.5-10.4); CHLORIDE, SERUM 107 MMOL/L (96-112); GFR AFRICAN AMERICAN 58 ML/MIN (>=60); GFR NON AFRICAN AMERICAN 50 ML/MIN (>=60); GLUCOSE, SERUM 109 MG/DL (60-99); PHOSPHORUS, SERUM 2.7 MG/DL (2.5-4.5); POTASSIUM, SERUM 5.1 MMOL/L (3.5-5.3); SODIUM, SERUM 133 MMOL/L (135-148)
[2016-09-10 08:27] LABS: BUN (BLOOD UREA NITROGEN) 81 MG/DL (6-23); CO2 (CARBON DIOXIDE) 14 MMOL/L (24-34)
[2016-09-11 05:46] LABS: HEMOGLOBIN 7.9 g/dL (13.6-17.8); MEAN CORPUS HGB CONC 32.9 g/dL (32.0-36.0); MEAN CORPUSCULAR HEMOGLOB 31.7 pg (26.0-34.0); MEAN CORPUSCULAR VOLUME 96.4 fL (80-100); MEAN PLATELET VOLUME 9.3 fL (9.2-13.0); PLATELET COUNT 158 10/3/uL (150-400); RBC DISTRIBUTION WIDTH 18.6 % (12.0-16.0); RED CELL COUNT 2.49 10/6/uL (4.7-6.1); WHITE BLOOD CELLS 5.2 10/3/uL (4.5-10.5)
[2016-09-11 05:47] LABS: MANUAL DIFF YES %
[2016-09-11 06:03] LABS: ALBUMIN 2.5 G/DL (3.5-5.0); BUN (BLOOD UREA NITROGEN) 82 MG/DL (6-23); CALCIUM, SERUM 7.5 MG/DL (8.5-10.4); CHLORIDE, SERUM 107 MMOL/L (96-112); CREATININE 1.42 MG/DL (0.70-1.30); GFR AFRICAN AMERICAN 52 ML/MIN (>=60); GFR NON AFRICAN AMERICAN 45 ML/MIN (>=60); GLUCOSE, SERUM 103 MG/DL (60-99); PHOSPHORUS, SERUM 3.1 MG/DL (2.5-4.5); POTASSIUM, SERUM 5.1 MMOL/L (3.5-5.3); SGOT(AST) 65 U/L (5-40); SGPT(ALT) 32 U/L (5-65); SODIUM, SERUM 134 MMOL/L (135-148); TOTAL PROTEIN 5.3 G/DL (6.0-8.5)
[2016-09-11 06:04] LABS: ALKALINE PHOSPHATASE 223 U/L (45-117); CO2 (CARBON DIOXIDE) 13 MMOL/L (24-34); DIRECT BILIRUBIN 0.2 MG/DL (0.0-0.4); INDIRECT BILIRUBIN(NOT ORDER) 0.1 MG/DL (0.1-0.9); TOTAL BILIRUBIN 0.3 MG/DL (0-1.2)
[2016-09-11 06:07] LABS: CALCIUM IONIZED 4.9 MG/DL (3.80-4.80)
[2016-09-11 06:18] LABS: ANISOCYTOSIS 1+ (5-10/OIF) (0-5/OIF); BAND NEUTROPHILS 4 %; BASOPHILS 1 %; BASOPHILS ABSOLUTE (CALC) 0.05 10/3/uL (0.0-0.16); EOSINOPHILS 7 %; EOSINOPHILS ABSOLUTE (CALC) 0.36 10/3/uL (0.0-0.53); LYMPHOCYTES 25 %; MONOCYTES 1 %; MONOCYTES ABSOLUTE (CALC) 0.05 10/3/uL (0.21-1.20); NEUTROPHILS ABSOLUTE (CALC) 3.43 10/3/uL (2.02-8.40); PLATELET ESTIMATE ADQ (ADEQUATE); SEGMENTED NEUTROPHIL (0) 62 %; TOTAL NUCLEATED CELLS 100
[2016-09-12 06:19] LABS: BASOPHILS 1.4 %; BASOPHILS ABSOLUTE 0.07 10/3/uL (0.0-0.16); EOSINOPHILS 6.8 %; EOSINOPHILS ABSOLUTE 0.33 10/3/uL (0.0-0.53); HEMATOCRIT 23.7 % (40.0-51.0); HEMOGLOBIN 8.1 g/dL (13.6-17.8); IMMATURE GRANULOCYTES 0.8 %; IMMATURE GRANULOCYTES ABSOLUTE 0.04 10/3/uL (0.0-0.11); LYMPHOCYTES 23.5 %; LYMPHOCYTES ABSOLUTE 1.14 10/3/uL (0.67-4.30); MEAN CORPUS HGB CONC 34.2 g/dL (32.0-36.0); MEAN CORPUSCULAR HEMOGLOB 31.6 pg (26.0-34.0); MEAN PLATELET VOLUME 9.4 fL (9.2-13.0); MONOCYTES 9.1 %; MONOCYTES ABSOLUTE 0.44 10/3/uL (0.21-1.20); NEUTROPHILS 58.4 %; NEUTROPHILS ABSOLUTE 2.83 10/3/uL (2.02-8.40); PLATELET COUNT 156 10/3/uL (150-400); RBC DISTRIBUTION WIDTH 18.5 % (12.0-16.0); RED CELL COUNT 2.56 10/6/uL (4.7-6.1); WHITE BLOOD CELLS 4.9 10/3/uL (4.5-10.5)
[2016-09-12 06:23] LABS: MANUAL DIFF NO %; MEAN CORPUSCULAR VOLUME 92.6 fL (80-100)
[2016-09-12 06:23] LABS: ALBUMIN 2.3 G/DL (3.5-5.0); BUN (BLOOD UREA NITROGEN) 80 MG/DL (6-23); CALCIUM, SERUM 7.4 MG/DL (8.5-10.4); CHLORIDE, SERUM 106 MMOL/L (96-112); CREATININE 1.39 MG/DL (0.70-1.30); GFR AFRICAN AMERICAN 54 ML/MIN (>=60); GFR NON AFRICAN AMERICAN 46 ML/MIN (>=60); GLUCOSE, SERUM 85 MG/DL (60-99); PHOSPHORUS, SERUM 3.8 MG/DL (2.5-4.5); POTASSIUM, SERUM 4.9 MMOL/L (3.5-5.3); SODIUM, SERUM 134 MMOL/L (135-148)
[2016-09-12 06:24] LABS: CO2 (CARBON DIOXIDE) 14 MMOL/L (24-34)
[2016-09-12] MEDS ORDERED: ASAB PO (14:43)
[2016-09-12] MEDS ORDERED: PROSCAR5 PO (14:44)
[2016-09-12] MEDS ORDERED: FLOMAX4 PO (14:45)
[2016-09-12] MEDS ORDERED: SODBICAR10 PO (14:47)
[2016-09-12] MEDS ORDERED: PROAMATINE10 MG PO (14:48)
[2016-09-12] MEDS ORDERED: BRILINTA90 MG PO (14:49)
[2016-09-12] MEDS ORDERED: LIPITOR40 PO (14:50)
[2016-10-18] MEDS ORDERED: L20 PO (15:04)
[2016-10-18] MEDS ORDERED: SPIRO25 PO (15:05)
[2016-10-18] MEDS ORDERED: CALTRAT600 PO (15:05)
[2017-01-17] MEDS ORDERED: CALTRAT600 PO (12:54)
[2017-01-17] MEDS ORDERED: CALTRA600D PO (12:54)
[2017-01-25] MEDS ORDERED: CENTRUM PO (18:03)
[2017-01-25] MEDS ORDERED: PROTONIX PO (18:03)
[2017-01-25] MEDS ORDERED: BISR PR (18:04)
== END 2016-09-12 17:19 | disposition home health service (06) | DRG 246 ==
LOC: SSU2 19:55 → CCU 21:43 → 5NO 08-08 13:22 → CCU 08-13 16:26 → 6NO 08-15 16:33
PROVIDERS: Internal Medicine; Internal Medicine Cardiovascular Disease; Internal Medicine Gastroenterology; Internal Medicine Hematology & Oncology; Internal Medicine Hepatology; Internal Medicine Nephrology; Nurse Practitioner Family; Nurse Practitioner Gerontology
PROC: 027034Z Dilation of Coronary Artery, One Artery with Drug-eluting Intraluminal Device, Percutaneous Approach (ICD-10-PCS; principal; 2016-08-05)
PROC: 4A023N7 Measurement of Cardiac Sampling and Pressure, Left Heart, Percutaneous Approach (ICD-10-PCS; 2016-08-05)
PROC: B2151ZZ Fluoroscopy of Left Heart using Low Osmolar Contrast (ICD-10-PCS; 2016-08-05)
PROC: B2111ZZ Fluoroscopy of Multiple Coronary Arteries using Low Osmolar Contrast (ICD-10-PCS; 2016-08-05)
PROC: 0W9G3ZZ Drainage of Peritoneal Cavity, Percutaneous Approach (ICD-10-PCS; 2016-08-12)
PROC: 30233N1 Transfusion of Nonautologous Red Blood Cells into Peripheral Vein, Percutaneous Approach (ICD-10-PCS; 2016-08-13)
PROC: 02HV33Z Insertion of Infusion Device into Superior Vena Cava, Percutaneous Approach (ICD-10-PCS; 2016-08-13)
PROC: 4A02X4A Measurement of Cardiac Electrical Activity, Guidance, External Approach (ICD-10-PCS; 2016-08-13)
PROC: 0W9G3ZZ Drainage of Peritoneal Cavity, Percutaneous Approach (ICD-10-PCS; 2016-08-19)
PROC: 0W9G3ZZ Drainage of Peritoneal Cavity, Percutaneous Approach (ICD-10-PCS; 2016-08-27)
PROC: 0W9G3ZZ Drainage of Peritoneal Cavity, Percutaneous Approach (ICD-10-PCS; 2016-08-30)
PROC: 3E0336Z Introduction of Nutritional Substance into Peripheral Vein, Percutaneous Approach (ICD-10-PCS; 2016-09-05)
PROC: 0W9G3ZZ Drainage of Peritoneal Cavity, Percutaneous Approach (ICD-10-PCS; 2016-09-08)
DX: I21.09 ST elevation (STEMI) myocardial infarction involving other coronary artery of anterior wall (principal); R57.0 Cardiogenic shock; N17.9 Acute kidney failure, unspecified; I50.21 Acute systolic (congestive) heart failure; I47.2 Ventricular tachycardia; E87.2 Acidosis; R18.8 Other ascites; N18.3 Chronic kidney disease, stage 3 (moderate); D68.4 Acquired coagulation factor deficiency; D69.3 Immune thrombocytopenic purpura; E46 Unspecified protein-calorie malnutrition; I13.0 Hypertensive heart and chronic kidney disease with heart failure and stage 1 through stage 4 chronic kidney disease, or unspecified chronic kidney disease; K56.7 Ileus, unspecified; D62 Acute posthemorrhagic anemia; I25.5 Ischemic cardiomyopathy; I27.2 Other secondary pulmonary hypertension; K59.00 Constipation, unspecified; R19.5 Other fecal abnormalities; E88.01 Alpha-1-antitrypsin deficiency; I25.10 Atherosclerotic heart disease of native coronary artery without angina pectoris; E03.9 Hypothyroidism, unspecified; R33.9 Retention of urine, unspecified; G25.81 Restless legs syndrome; I95.81 Postprocedural hypotension; F17.220 Nicotine dependence, chewing tobacco, uncomplicated; K74.69 Other cirrhosis of liver; Z90.49 Acquired absence of other specified parts of digestive tract; Z88.5 Allergy status to narcotic agent; Z68.21 Body mass index [BMI] 21.0-21.9, adult
CPT/HCPCS: 36415; 36569; 36600; 49083; 71010; 74000; 74176; 74250; 78582; 80048; 80053; 80061; 80069; 80076; 80162; 80202; 81001; 82040; 82042; 82140; 82247; 82248; 82272; 82330; 82550; 82553; 82570; 82607; 82728; 82746; 82805; 82945; 82962; 83010; 83540; 83550; 83615; 83690; 83735; 84100; 84134; 84145; 84155; 84157; 84443; 84460; 84478; 84484; 84540; 85014; 85018; 85025; 85045; 85347; 85610; 85730; 86140; 86850; 86870; 86900; 86901; 86902; 86904; 86920; 86922; 87015; 87040; 87070; 87075; 87102; 87116; 87205; 87641; 87804; 88112; 88305; 89051; 93005; 93306; 93458; 93970; 94640; 97116-GP; 97161-GP; 97164-GP; 97166-GO; 97530-GP; 99152; 99153; 99285; A9270-GY; A9540; A9567; C1725; C1751; C1757; C1769; C1874; C1887; C1894; C8929; C9113; C9606; G8978-CK-GP; G8979-CJ-GP; G8987-CJ-GO; G8988-CI-GO; J0282; J0583; J1160; J1940; J2250; J2370; J2405; J2550; J2765; J2916; J3010; J3370; P9016; P9045; P9047; Q9957; Q9967